=== PATIENT | male | born 1945 | race Caucasian/White ===

== ENCOUNTER 2017-04-28 06:29 | Day surgery (SDC) | payer MEDICARE, OTHER ==
[~2017-04-28] VITALS: Ht 185.4 cm; Wt 95.7 kg
[~2017-04-28 06:29] MED LIST: CRESTOR40 MG PO; HUMALOG100 UNIT/2 SUB-Q; HYDROCHLOROTHIA25 MG PO; LANTUS SOL100 UNIT/1 SUB-Q; LISINOPRIL30 MG PO; METHOTREXATE2.5 MG PO; NORVASC5 MG PO; TRAZODONE HCL50 MG PO; VICTOZA 3-0.6 MG/0.1 SUB-Q
[2017-04-28] MEDS ORDERED: ASPIR-LOW81 MG PO (07:16)
--- NOTE | 2017-04-28 07:56 | NUR ---
PT RESTING, ALERT AND ORIENTED. HAS HAD COLON CANCER, AND IS USED TO SCOPES. HIS DR A RESULT OF RECENT BLOOD WORK, FELT IT PRUDENT TO HAVE A SCOPE NOW-JUST TO KEEP AN EYE ON THINGS. HE SEEMED TO BE DEALING APPROPRIATELY, NO QUESTIONS, PT REQUESTED PRAYER. WILL FOLLOW NEEDED
--- NOTE | 2017-04-28 08:24 | NUR ---
04/28/17 0824 Tila Grider 0819 - PT ARRIVED TO PACU. AWAKE AND ORIENTED TO PERSON, TIME, PLACE, AND SITUATION. CBG = 126. PT DENIES PAIN AND NAUSEA.
--- NOTE | 2017-04-30 01:42 | OR ---
[facility] [address], [place] [address] Signed PREOPERATIVE DIAGNOSES: History of sigmoid resection for carcinoma in 2002. History of recurring polyps, last colonoscopy in December 2014.+ POSTOPERATIVE DIAGNOSIS: Three small polyps. Left shai colon and sigmoid shai colon. PROCEDURE: Total colonoscopy to the cecum with cold morcellation polypectomy x3. ANESTHESIA: Intravenous sedation, fentanyl 100 mcg, Versed 4 mg. INDICATION: This 71-year-old white man is a patient of Dr. Brandon Liu in [place], [place]. He underwent sigmoid resect ion elsewhere for carcinoma in 2002. He has had surveillance colonoscopy by me several times since then. He has had episodic findings of adenomatous polyps. He recently has had some rectal bleeding and on that basis, hematocrit was obtained which is 39 an d a CEA is found to be normal. His last colonoscopy was in 2014. He is admitted at this time to undergo surveillance colonoscopy. He understands the risks of bleeding, infection, and perforation. FINDINGS: The prep was good. Complete colonoscopy was undertak en to the cecum. There were 3 small polyps; one in the shai descending colon and 2 others in the shai sigmoid colon. Both were excised completely. There was no sign of rectal polyp. DESCRIPTION OF PROCEDURE: The patient was brought to the endoscopy suite, [facility] in lateral decubitus position, given intravenous sedation to the point of slurred speech and nystagmus. Digital rectal examination was normal. Olympus video colonoscope was passed in the rectum and manipulated throughout the colon. It was found in th e shai descending colon, a small adenomatous-appearing polyp, which was excised with cold morcellation technique. The scope was advanced slowly to the cecum. The ileocecal valve and appendiceal orifice were normal. The scope was withdrawn from that point. E xamination throughout was undertaken showing no sign of abnormality until the area of previous polypectomy identified. Further withdrawal of scope to the shai sigmoid showed 2 small polyps, both of them probably adenomatous. They were excised with cold mor c ellation technique. Further withdrawal of scope showed no other abnormalities. The anastomosis was widely patent. Retroflexed view of the rectum showed no sign of polyp. There were internal hemorrhoidal changes, however. The scope was Electronically Signed By: BETTY MOHR MD 04/30/17 0142 PATIENT NAME: KRISTA SULLIVAN OPERATIVE REPORT DATE OF : 47 PHYSICIAN: BETTY MOHR MD REPORT #: [id number] REPORT IS CONFIDENTIAL AND NOT TO BE RELEASED WITHOUT AUTHORIZATION [facility] [address], [place] [address] Signed removed. The patient was taken to recovery room in good condition. CONCLUDING DIAGNOSES: Rectal bleeding probably from hemorrhoids. Three small polyps, all excised. PLAN: Recommend repeat colonoscopy in 3 years, sooner if clinically indicated. If he should have recurrent bleeding, consideration will be made for hemorrhoidal banding. MD HERMELINDA Pena/Glory /[id number] cc: Brandon Liu MD [place], [place] Electronically Signed By: BETTY MOHR MD 04/30/17 0142 PATIENT NAME: KRISTA SULLIVAN OPERATIVE REPORT DATE OF : 47 PHYSICIAN: BETTY MOHR MD REPORT #: [id number] REPORT IS CONFIDENTIAL AND NOT TO BE RELEASED WITHOUT AUTHORIZATION
== END 2017-04-28 08:50 | disposition home or self-care (01) ==
LOC: OPS 06:29 → DS 06:29 → OPS 06:45
PROVIDERS: Surgery
PROC: 0DBG8ZX Excision of Left Large Intestine, Via Natural or Artificial Opening Endoscopic, Diagnostic (ICD-10-PCS; 2017-04-28)
PROC: 0DBN8ZX Excision of Sigmoid Colon, Via Natural or Artificial Opening Endoscopic, Diagnostic (ICD-10-PCS; principal; 2017-04-28 06:45)
DX: D12.5 Benign neoplasm of sigmoid colon (principal); D12.6 Benign neoplasm of colon, unspecified; D64.9 Anemia, unspecified; F41.9 Anxiety disorder, unspecified; E11.9 Type 2 diabetes mellitus without complications; I10 Essential (primary) hypertension; Z86.010 Personal history of colon polyps; Z90.49 Acquired absence of other specified parts of digestive tract; Z98.890 Other specified postprocedural states
CPT/HCPCS: 88305; 99152; 99153; J2250; J3010; J7120

== ENCOUNTER 2017-09-10 10:31 | Emergency (ER) | payer MEDICARE, OTHER ==
[~2017-09-10] VITALS: Ht 185.4 cm; Wt 95.7 kg
[~2017-09-10 10:31] MED LIST changes: +ASPIR-LOW81 MG PO
[2017-09-10] MEDS ORDERED: NORCO 5-325 TA1 EACH PO (10:59)
[2017-09-10] MEDS ORDERED: TAMSULOSIN HCL0.4 MG PO (10:59)
[2017-09-10] MEDS ORDERED: PROTONIX40 MG PO (14:44)
== END 2017-09-10 15:03 | disposition home or self-care (01) ==
LOC: ED 10:31
DX: R10.13 Epigastric pain (principal); E11.9 Type 2 diabetes mellitus without complications; Z87.891 Personal history of nicotine dependence; Z90.49 Acquired absence of other specified parts of digestive tract; Z79.899 Other long term (current) drug therapy; Z79.4 Long term (current) use of insulin; Z79.82 Long term (current) use of aspirin
CPT/HCPCS: 74177; 76705; 80053; 81001; 82150; 83690; 85025; 99284; J7030; Q9967

== ENCOUNTER 2018-02-03 18:56 | Inpatient (IN) | payer MEDICARE, OTHER ==
[~2018-02-03] VITALS: Ht 185.4 cm; Wt 99.9 kg
--- OUTSIDE RECORDS SUMMARY | ~2018-02-03 | XMS | Clinical Summary ---
Demographics + + + | Address | [address] | | | [place] [address] | + + + | Home Phone | | + + + | Preferred Language | Unknown | + + + | Marital Status | | + + + | Anabaptism Affiliation | 1028 | + + + | Race | Unknown | + + + | Ethnic Group | Unknown | + + + Author + + + | Author | [facility] | | | and Danielana | + + + | Organization | [facility] | | | and Danielana | [...] Team Providers + +------+ + | Care Mail Machine Operator Name | Role | Phone | [...] | | | | | | [address] [facility] | | | | | | [address] | | | | | | [address] | | | | | | | [...] + +--------+ +--------+ +---------+ | [employer] [place] | UNITED | [id number] | Indemn | [phone] | | | | OF | | ity | 1000 | | | | [place] | | | | | | | [...] | | al/Fam | | 1945 | [phone] | [place] [address] | | | [place] | | | [phone] | | + +--------+ +--------+ + +
--- OUTSIDE RECORDS SUMMARY | ~2018-02-03 | XMS | Clinical Summary ---
Demographics + + + | Address | [address] | | | [place] [address] | + + + | Home Phone | | + + + | Preferred Language | Unknown | + + + | Marital Status | | + + + | Advent Affiliation | Unknown | + + + | Race | Unknown | + + + | Ethnic Group | Unknown | + + + Author + + + | Author | [facility] | + + + | Organization | [facility] | + + + | Address | Unknown | + + + | Phone | Unavailable | + + + Support + + + + + | Name | Relationship | Address | Phone | + + + + + | Krista Sullivan | [address] | [place], | | | | | [place] [address] | | + + + + + Care Team Providers + +------+ + | Care Machinist Set Up Name | Role | Phone | + [...] RE | | | | [place] [address] | | | IP-OP | | | | | + +--------+ +------+-------+ + | [employer] [place] | MUTUAL | [id number] | | | | | | OF | | | | | | | [place] | | | | | + +--------+ [...] | Self | [birth year] | Home: | [facility] [address] | | | [address] | | 1945 | [phone] | [place] | | | [place] | | | [phone] | [address] | + +--------+ +--------+ + +
[~2018-02-03 18:56] MED LIST changes: +NORCO 5-325 TA1 EACH PO; +PROTONIX40 MG PO; +TAMSULOSIN HCL0.4 MG PO
--- OUTSIDE RECORDS SUMMARY | 2018-02-03 20:45 | XMS | Clinical Summary ---
Demographics + + + | Address | [address] | | | [place] [address] | + + + | Home Phone | | + + + | Preferred Language | Unknown | + + + | Marital Status | | + + + | Baptism Affiliation | Unknown | + + + | Race | Unknown | + + + | Ethnic Group | Unknown | + + + Author + + + | Author | [facility] | + + + | Organization | [facility] | + + + | Address | Unknown | + + + | Phone | Unavailable | + + + Support + + + + + | Name | Relationship | Address | Phone | + + + + + | Krista Sullivan | [address] | [place], | | | | | [place] [address] | | + + + + + Care Team Providers + +------+ + | Care Timber Killer Name | Role | Phone | + +------+ + | Brandon Liu MD | PP | | + +------+ + Allergies Not on File Current Medications Not on file Active Problems Not on file Social History + +-------+ +--------+------+ | Tobacco Use | Types | Packs/Day | Years | Date | | | | | Used | | + +-------+ +--------+------+ | Never Assessed | | | | | + +-------+ +--------+------+ + + + | Sex Assigned at | Date Recorded | | | | + + + | Not on file | | + + + Last Filed Vital Signs + + + + | Vital Sign | Reading | Time Taken | + + + + | Blood Pressure | - | - | + + + + | Pulse | - | - | + + + + | Temperature | - | - | + + + + | Respiratory Rate | - | - | + + + + | Oxygen Saturation | - | - | + + + + | Inhaled Oxygen | - | - | | Concentration | | | + + + + | Weight | 96.2 kg (212 lb) | 11/25/2011 6:11 AM PST | + + + + | Height | 188 cm (6' 2") | 11/25/2011 6:11 AM PST | + + + + | Body Mass Index | 27.22 | 11/25/2011 6:11 AM PST | + + + + Plan of Treatment Not on file Results Not on filefrom Last 3 Months Insurance + +--------+ +------+-------+ + | Payer | Benefi | Subscriber | Type | Phone | Address | | | t Plan | ID | | | | | | / | | | | | | | Group | | | | | + +--------+ +------+-------+ + | MEDICARE | MEDICA | xxxxxxxxxx | | | [address] | | | RE | | | | [place] [address] | | | IP-OP | | | | | + +--------+ +------+-------+ + | [employer] [place] | MUTUAL | [id number] | | | | | | OF | | | | | | | [place] | | | | | + +--------+ +------+-------+ + + +--------+ +--------+ + + | Guarantor Name | Accoun | Relation to | Date | Phone | Billing Address | | | t Type | Patient | of | | | | | | | | | | + +--------+ +--------+ + + | KRISTA SULLIVAN | Person | Self | [birth year] | Home: | [facility] [address] | | | [address] | | 1945 | [phone] | [place] | | | [place] | | | [phone] | [phone] | + +--------+ +--------+ + +
--- OUTSIDE RECORDS SUMMARY | 2018-02-03 20:46 | XMS | Clinical Summary ---
Demographics + + + | Address | [address] | | | [place] [address] | + + + | Home Phone | | + + + | Preferred Language | Unknown | + + + | Marital Status | | + + + | Jainism Affiliation | 1028 | + + + | Race | Unknown | + + + | Ethnic Group | Unknown | + + + Author + + + | Author | [facility] | | | and Danielana | + + + | Organization | [facility] | | | and Danielana | + + + | Address | Unknown | + + + | Phone | Unavailable | + + + Support + + +---------+ + | Name | Relationship | Address | Phone | + + +---------+ + | Ladonna [place] ECON | Unknown | | + + +---------+ + | Eloisa Mccormack | ECON | Unknown | | + + +---------+ + Care Team Providers + +------+ + | Care Patient Advocate Name | Role | Phone | + +------+ + | Brandon Liu MD | PP | | + +------+ + Allergies No Known Allergies Current Medications + + +---------+---------+------+------+-------+ | Prescription | Sig. | Disp. | Refills | Star | End | Statu | | | | | | t | Date | s | | | | | | Date | | | + + +---------+---------+------+------+-------+ | | Take 1 tablet by | | | 05/0 | | Activ | | HYDROcodone-acetamin | mouth every 4 hours | | | 9/20 | | e | | ophen (NORCO) 5-325 | as needed. | | | 15 | | | | mg per tablet | | | | | | | + + +---------+---------+------+------+-------+ | VICTOZA 18 MG/3ML | Inject 1.8 mg under | | | 06/0 | | Activ | | injection | the skin Daily. | | | 3/20 | | e | | | | | | 15 | | | + + +---------+---------+------+------+-------+ | traZODone | Take 25-75 mg by | | | 04/2 | | Activ | | (DESYREL) 50 mg | mouth nightly as | | | 5/20 | | e | | tablet | needed. | | | 15 | | | + + +---------+---------+------+------+-------+ | aspirin 81 mg EC | Take 81 mg by mouth | | | | | Activ | | tablet | Daily. | | | | | e | + + +---------+---------+------+------+-------+ | insulin lispro | Inject 6 Units under | | | | | Activ | | protamine-insulin | the skin 3 times | | | | | e | | lispro 75/25 | daily. | | | | | | | (HUMALOG MIX 75/25 | | | | | | | | KWIKPEN) 100 | | | | | | | | units/mL injection | | | | | | | | pen | | | | | | | + + +---------+---------+------+------+-------+ | insulin glargine | Inject 22 Units | | | | | Activ | | (LANTUS) 100 | under the skin | | | | | e | | units/mL injection | nightly. | | | | | | | (vial) | | | | | | | + + +---------+---------+------+------+-------+ | Multiple | Take 1 tablet by | | | | | Activ | | Vitamins-Minerals | mouth Daily. | | | | | e | | (ICAPS PO) | | | | | | | + + +---------+---------+------+------+-------+ | LORazepam (ATIVAN) | Take 0.5 mg by mouth | | | | | Activ | | 0.5 mg tablet | every 6 hours as | | | | | e | | | needed for Anxiety | | | | | | | | or Insomnia. | | | | | | + + +---------+---------+------+------+-------+ | lisinopril | Take 10 mg by mouth | | | | | Activ | | (PRINIVIL, ZESTRIL) | 2 times daily. | | | | | e | | 20 mg tablet | | | | | | | + + +---------+---------+------+------+-------+ | amLODIPine | Take 0.5 tablets by | | | 04/0 | | Activ | | (NORVASC) 5 mg | mouth 2 times daily. | | | 5/20 | | e | | tablet | | | | 16 | | | + + +---------+---------+------+------+-------+ | rosuvastatin | Take 0.5 tablets by | | | 04/0 | | Activ | | (CRESTOR) 40 MG | mouth nightly. | | | 5/20 | | e | | tablet | | | | 16 | | | + + +---------+---------+------+------+-------+ | sodium bicarbonate | Take 1 tablet by | 180 | 3 | 11/0 | | Activ | | 325 MG tablet | mouth 2 times daily. | tablet | | 7/20 | | e | | | | | | 16 | | | + + +---------+---------+------+------+-------+ | tamsulosin | Take 1 capsule by | 30 | 3 | 06/1 | | Activ | | (FLOMAX) 0.4 mg CAPS | mouth nightly. | capsule | | 9/20 | | e | | | | | | 17 | | | + + +---------+---------+------+------+-------+ Active Problems + + + | Problem | Noted Date | + + + | Urinary hesitancy due to benign prostatic hyperplasia | 03/31/2017 | + + + | Metabolic acidosis | 03/26/2016 | + + + | Caregiver stress | 12/28/2015 | + + + | Chronic kidney disease, stage III (moderate) | 12/28/2015 | + + + | Enchondroma of femur | 03/22/2015 | + + + + + | Last Assessment & Plan: This lesion is a benign | | enchondromaRadiographically it has the classic calcification on | | plain films and MRI does show it is cartilage basedOn MRI there | | are no signs of erosion or excess fluidI was able to discuss the | | natural history and treatment optionsI do not recommend | | biospyObservation is all that is requiredHe has horrible knee | | arthritis and this is likely his generator of painAll questions | | are answered | + + + + + | Chronic lumbar radiculopathy - left | 08/10/2014 | + + + | DDD (degenerative disc disease), lumbar | 08/10/2014 | + + + | Type 2 diabetes mellitus (HCC) | | + + + | Hypertension, renal disease, stage 1-4 or unspecified chronic | | | kidney disease | | + + + Family History + + +------+ + | Medical History | Relation | Name | Comments | + + +------+ + | Hypertension | Brother | | | + + +------+ + | Stroke | Father | | | + + +------+ + | Heart attack | Mother | | | + + +------+ + + +------+ + + | Relation | Name | Status | Comments | + +------+ + + | Brother | | Alive | | + +------+ + + | Father | | | | + +------+ + + | Mother | | | | + +------+ + + Social History + +-------+ +--------+ + | Tobacco Use | Types | Packs/Day | Years | Date | | | | | Used | | + +-------+ +--------+ + | Former Smoker | Pipe | | | Quit: 12/27/2014 | + +-------+ +--------+ + + +---+---+---+ | Smokeless Tobacco: | | | | | Never Used | | | | + +---+---+---+ + + +---------+ + | Alcohol Use | Drinks/We | oz/Week | Comments | | | ek | | | + + +---------+ + | Yes | 0 | 0.0 | occasionally; was drinking more 2-3 months | | | Standard | | ago | | | drinks or | | | | | | | | | | equivalen | | | | | t | | | + + +---------+ + + + + | Sex Assigned at | Date Recorded | | | | + + + | Not on file | | + + + Last Filed Vital Signs + + + + | Vital Sign | Reading | Time Taken | + + + + | Blood Pressure | 122/62 | 03/31/20171112 PDT | + + + + | Pulse | 73 | 03/31/20171112 PDT | + + + + | Temperature | 36.7 C (98.1 F) | 12/28/20151309 PDT | + + + + | Respiratory Rate | 16 | 12/28/20151309 PDT | + + + + | Oxygen Saturation | 98% | 03/31/20171112 PDT | + + + + | Inhaled Oxygen | - | - | | Concentration | | | + + + + | Weight | 96.7 kg (213 lb 1.6 | 03/31/20171112 PDT | | | oz) | | + + + + | Height | 188 cm (6' 2") | 12/28/2015 1310 PDT | + + + + | Body Mass Index | 27.36 | 03/31/20171112 PDT | + + + + Plan of Treatment +--------+---------+ + + + | Date | Type | Specialty | Care Team | Description | +--------+---------+ + + + | 04/09/ | Office | | Emily, | | | 2017 | Visit | | [address] | | | | | | [facility] | | | | | | [address] [place] [place] | | | | | | [address] | | | | | | | | +--------+---------+ + + + + + + + + | Health Maintenance | Due Date | Last Done | Comments | + + + + + | Hepatitis C | | | | | Screening | 6 | | | + + + + + | Diabetic Eye Exam | | | | | (Bi-Annually) | 4 | | | + + + + + | Diabetic Foot Exam | | | | | | 4 | | | + + + + + | Vaccine: | | | | | Dtap/Tdap/Td (1 - | 5 | | | | Tdap) | | | | + + + + + | Vaccine: | | | | | Pneumococcal 65+ | 1 | | | | Low/Medium Risk (1 | | | | | of 2 - PCV13) | | | | + + + + + | Hemoglobin A1c Q6 | | 03/24/2017, 09/24/2016, | | | Months | 7 | 02/12/2016, Additional history | | | | | exists | | + + + + + | Vaccine: Influenza | | | | | (Season Ended) | 8 | | | + + + + + Results Not on filefrom Last 3 Months Insurance + +--------+ +--------+ +---------+ | Payer | Benefi | Subscriber | Type | Phone | Address | | | t Plan | ID | | | | | | / | | | | | | | Group | | | | | + +--------+ +--------+ +---------+ | MEDICARE | MEDICA | xxxxxxxxxx | Medica | [phone]-- | | | | RE | | re | [phone] | | | | PART A | | | | | | | AND B | | | | | + +--------+ +--------+ +---------+ | [employer] [place] | UNITED | [id number] | Indemn | [phone] | | | | OF | | ity | 1000 | | | | [place] | | | | | | | MDCR | | | | | | | SUPPL | | | | | + +--------+ +--------+ +---------+ + +--------+ +--------+ + + | Guarantor Name | Accoun | Relation to | Date | Phone | Billing Address | | | t Type | Patient | of | | | | | | | | | | + +--------+ +--------+ + + | KRISTA SULLIVAN | Person | Self | [birth year] | Home: | [address] | | | al/Fam | | 1945 | [phone] | [place] [address] | | | [place] | | | [phone] | | + +--------+ +--------+ + +
--- OUTSIDE RECORDS SUMMARY | 2018-02-03 20:46 | XMS | Clinical Summary ---
Demographics + + + | Address | [address] | | | [place] [address] | + + + | Home Phone | | + + + | Preferred Language | Unknown | + + + | Marital Status | | + + + | Shinto Affiliation | Unknown | + + + | Race | Unknown | + + + | Ethnic Group | Unknown | + + + Author + + + | Author | [facility] | + + + | Organization | [facility] | + + + | Address | Unknown | + + + | Phone | Unavailable | + + + Support + + + + + | Name | Relationship | Address | Phone | + + + + + | Krista Sullivan | [address] | [place], | | | | | [place] [address] | | + + + + + Care Team Providers + +------+ + | Care Exhibit Electrician Name | Role | Phone | + [...] RE | | | | [place] [address] | | | IP-OP | | | | | + +--------+ +------+-------+ + | [employer] [place] | MUTUAL | [id number] | | | | | | OF | | | | | | | [place] | | | | | + +--------+ [...] | Self | [birth year] | Home: | [facility] [address] | | | [address] | | 1945 | [phone] | [place] | | | [place] | | | [phone] | [phone] | + +--------+ +--------+ + +
--- OUTSIDE RECORDS SUMMARY | 2018-02-03 20:46 | XMS | Clinical Summary ---
Demographics + + + | Address | [address] | | | [place] [address] | + + + | Home Phone | | + + + | Preferred Language | Unknown | + + + | Marital Status | | + + + | Restorationist Affiliation | 1028 | + + + | Race | Unknown | + + + | Ethnic Group | Unknown | + + + Author + + + | Author | [facility] | | | and Danielana | + + + | Organization | [facility] | | | and Danielana | [...] Team Providers + +------+ + | Care Pulp Cooker Name | Role | Phone | + [...] | | | | | | [address] [facility] | | | | | | [address] | | | | | | [address] | | | | | | | [...] + +--------+ +--------+ +---------+ | [employer] [place] | UNITED | [id number] | Indemn | [phone] | | | | OF | | ity | [address] | | | | [place] | | | | | | | [...] | | al/Fam | | 1945 | [phone] | [place] [address] | | | [place] | | | [phone] | | + +--------+ +--------+ + +
--- OUTSIDE RECORDS SUMMARY | 2018-02-04 12:04 | XMS | Clinical Summary ---
Demographics + + + | Address | [address] | | | [place] [address] | + + + | Home Phone | | + + + | Preferred Language | Unknown | + + + | Marital Status | | + + + | Restoration Affiliation | 1028 | + + + | Race | Unknown | + + + | Ethnic Group | Unknown | + + + Author + + + | Author | [facility] | | | and Danielana | + + + | Organization | [facility] | | | and [...] Team Providers + +------+ + | Care Desizing Machine Operator Head End Name | Role | Phone | + [...] | | | | | | [facility] | | | | | | [address] | | | | | | [address] | | | | | | | [...] + +--------+ +--------+ +---------+ | [employer] [place] | UNITED | [id number] | Indemn | [phone] | | | | OF | | ity | 1000 | | | | [place] | | | | | | | [...] | | al/Fam | | 1945 | [phone] | [place] [address] | | | [place] | | | [phone] | | + +--------+ +--------+ + +
--- OUTSIDE RECORDS SUMMARY | 2018-02-04 12:04 | XMS | Clinical Summary ---
Demographics + + + | Address | [address] | | | [place] [address] | + + + | Home Phone | | + + + | Preferred Language | Unknown | + + + | Marital Status | | + + + | Muslim Affiliation | Unknown | + + + | Race | Unknown | + + + | Ethnic Group | Unknown | + + + Author + + + | Author | [facility] | + + + | Organization | [facility] | + + + | Address | Unknown | + + + | Phone | Unavailable | + + + Support + + + + + | Name | Relationship | Address | Phone | + + + + + | Krista Sullivan | [address] | [place], | | | | | [place] [address] | | + + + + + Care Team Providers + +------+ + | Care Cd Reactor Operator Name | Role | Phone | + [...] RE | | | | [place] [address] | | | IP-OP | | | | | + +--------+ +------+-------+ + | [employer] [place] | MUTUAL | [id number] | | | | | | OF | | | | | | | [place] | | | | | + +--------+ [...] | Self | [birth year] | Home: | [facility] [address] | | | [address] | | 1945 | [phone] | [place] | | | [place] | | | [phone] | [phone] | + +--------+ +--------+ + +
[2018-02-04] MEDS ORDERED: TOPROL XL25 MG PO (13:45)
[2018-02-04] MEDS ORDERED: ZESTRIL40 MG PO (13:46)
[2018-02-04] MEDS ORDERED: VENTOLIN HFA18 GM INH (13:48)
[2018-02-04] MEDS ORDERED: PROTONIX40 MG PO (17:43)
[2018-02-04] MEDS ORDERED: TOUJEO SOL300 UNIT/1 SUB-Q (17:46)
--- NOTE | 2018-02-05 05:48 | CONS ---
[facility] [address] [place] [address], [place] [address] Signed DATE OF CONSULTATION: 02/04/2018 CHIEF COMPLAINT: Right-sided abdominal pain. HISTORY OF PRESENT ILLNESS: Krista is a 72-year-old gentleman who in 2002 underwent a sigmoid resection for a colon cancer. He had chemotherapy that went fine. He has had several colonoscopies since then including 2014, which showed three small polyps in his left colon. For two days now, he has had right mid quadrant abdominal pain that has been pretty intense. He finally came to the ER for evaluation. White count had initially been up at 14.5, it is now down to 9.2. He had a CT scan of the abdomen and pelvis, and it showed the mid right colon to be thickened and inflamed with fat stranding around it, but the cecum seems to be actually pretty good. He had some stool in the left colon and did get a Dulcolax suppository last night with a bowel movement, but no major change in that pain. He has been on cefepime and Flagyl as well. Repeat white count this morning is down to 9.2. No lactic acid has been sent, so we will do that. I was asked to admit him as a general surgeon on-call last night. PAST MEDICAL HISTORY: Colon cancer in 2002, requiring chemotherapy in the [facility]; type 2 diabetes, hypertension, hyperlipidemia, and polyps as late as 2014. PAST SURGICAL HISTORY: Sigmoid resection at [facility] in [place], several colonoscopies with Dr. Fish, laparoscopic cholecystectomy, lumbar surgery with metal remaining, appendectomy, cataract surgery, and left knee surgery x3. SOCIAL HISTORY: He does not smoke or drink. He is just the last 6 months. He has no children, but he has two stepdaughters. Yulia Daugherty is his primary care provider. He prefers the [facility]. They moved up from [place] to [place]. 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 FAMILY HISTORY: Father , father had a stroke. Mother had coronary artery disease. Brother is healthy. There is no family history of colon cancer or polyps. REVIEW OF SYSTEMS: He had 10 systems reviewed. Krista said he has been doing fine until this pain in the right mid quadrant for the last 2 days. ALLERGIES: Electronically Signed By: AUREA ELLIS MD 02/05/18 0548 PATIENT NAME: KRISTA SULLIVAN CONSULTATION DATE OF : 47 REPORT #: [id number] PHYSICIAN: AUREA ELLIS MD PCP: YULIA DAUGHERTY REPORT IS CONFIDENTIAL AND NOT TO BE RELEASED WITHOUT AUTHORIZATION [facility] [address], [place] [address] Signed None. MEDICATIONS: 1. Protonix. 2. Trazodone. 3. Insulin. 4. Victoza. 5. Methotrexate. 6. Humalog. 7. Crestor. 8. Hydrochlorothiazide. 9. Aspirin. 10. Bejou. Flomax. PHYSICAL EXAMINATION: VITAL SIGNS: His blood pressure is 131/58, heart rate 66, respiratory rate 16, temperature is 98.3, and he is 97% on room air. He is 6 feet and 1 inch at 99 kg. GENERAL: Krista is a 72-year-old gentleman who is lying supine in his hospital bed. His is at the bedside. He is alert, awake, and interactive. He does not appear systemically ill or toxic. LUNGS: Generally clear to auscultation bilaterally. HEART: Regular rate and rhythm. ABDOMEN: Soft and flat, but he does have localized peritoneal signs and symptoms in the right mid quadrant of his abdomen. LABORATORY DATA: His white blood cell count was 14.5, it is down to 9.2; his neutrophils are 81, hemoglobin is 12. His BUN is 30, creatinine 1.5, glucose 164. His urinalysis was negative. Liver function tests are negative. His albumin is 4 and lipase negative. RADIOGRAPHIC STUDIES: CT scan of the abdomen and pelvis is reviewed, and I can see this thickened inflamed area in the mid right colon. The cecum seems to be fine. He did have some stool in the left colon. I can see the evelyne near the top of the rectum. 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 ASSESSMENT AND PLAN: Krista is a 72-year-old gentleman who presents with focal right-sided colitis, why we do not know. We will continue his IV fluids and his antibiotics. We will have him some sips. We will check some stool studies along with a lactic acid and go from there. We will have our hospitalist see him for his medical evaluation and treatment. I reviewed all this with Krista, he has expressed understanding and agrees with the above plan. Electronically Signed By: AUREA ELLIS MD 02/05/18 0548 PATIENT NAME: KRISTA SULLIVAN CONSULTATION DATE OF : 47 REPORT #: [id number] PHYSICIAN: AUREA ELLIS MD PCP: YULIA DAUGHERTY REPORT IS CONFIDENTIAL AND NOT TO BE RELEASED WITHOUT AUTHORIZATION [address] [address] Signed Aurea Ellis MD ALB/MODL /[id number] cc: TROY Wang Patient's Chart Aurea Ellis MD Copies: YULIA DAUGHERTY ANDREW L MD ~ Electronically Signed By: AUREA ELLIS MD 02/05/18 0548 PATIENT NAME: KRISTA SULLIVAN CONSULTATION DATE OF : 47 REPORT #: [id number] PHYSICIAN: AUREA ELLIS MD PCP: YULIA DAUGHERTY REPORT IS CONFIDENTIAL AND NOT TO BE RELEASED WITHOUT AUTHORIZATION
--- NOTE | 2018-02-07 12:00 | DS ---
[facility] [address] [place], [place] [address] Signed ADMISSION DATE: 02/05/2018 DISCHARGE DATE: 02/07/2018 FINAL DIAGNOSES: 1. Right mid colon unspecified mass versus colitis. 2. Right mid colon polyp. 3. Hepatic flexure polyp. PROCEDURES: 1. Colonoscopy with cold biopsy and hot biopsies. 2. CT scan of abdomen and pelvis. HISTORY OF PRESENT ILLNESS: Krista is a 72-year-old gentleman, who 2 days prior to admission had significant right mid quadrant abdominal pain. In the emergency room, he had localized peritonitis on exam. White count was initially elevated at 14.5. CT scan showed an area in the mid right colon that was thickened and inflamed with pericolonic fat stranding. I had been asked to admit him as a general surgeon on-call. HOSPITAL COURSE: Yeison was admitted as above and started on cefepime and Flagyl and rapidly resolved his pain. His white count went to normal. Lactic acid was normal and stool cultures had all been no growth to date. After a long discussion with Yeison, we took him for a colonoscopy on 02/07/2018. We could see the circumferential lesion in the mid right colon. We took multiple circumferential biopsies with our cold biopsy forceps. Then, right next to it was a polyp, which we removed with a hot biopsy forceps and then back in hepatic flexure was a smaller 4 mm polyp. We removed with hot biopsy forceps. The rest of the colon including anastomosis and rectum were fine. After this, Krista returned to his room. DISCHARGE PLANS AND MEDICATIONS: Yeison will be discharged to home with no new prescriptions. He will hold his aspirin for one week. He can resume all his other medications at the time of discharge. He can follow a regular diet and activity as tolerated. He will be following up with Dr. Mohr here in 7 to 14 days to review his pathology results. Aurea Ellis MD Electronically Signed By: AUREA ELLIS MD 02/07/18 1200 PATIENT NAME: KRISTA SULLIVAN DISCHARGE SUMMARY DATE OF : 47 REPORT #: [id number] PHYSICIAN: AUREA ELLIS MD PCP: YULIA HAIRSTON REPORT IS CONFIDENTIAL AND NOT TO BE RELEASED WITHOUT AUTHORIZATION [facility] [address] [place], [place] [address] Signed ALB/MODL /[id number] cc: MD Aurea Pena MD Linda Harries, PA Copies: BETTY MOHR MD, ANDREW L MD HARRIES, LINDA PA ~ Electronically Signed By: AUREA ELLIS MD 02/07/18 1200 PATIENT NAME: KRISTA SULLIVAN DISCHARGE SUMMARY DATE OF : 47 REPORT #: [id number] PHYSICIAN: AUREA ELLIS MD PCP: YULIA HAIRSTON REPORT IS CONFIDENTIAL AND NOT TO BE RELEASED WITHOUT AUTHORIZATION
--- NOTE | 2018-02-07 12:00 | OR ---
[facility] [address] [place], [place] [address] Signed DATE OF OPERATION: 02/07/2018 SURGEON: Aurea Ellis MD PREOPERATIVE DIAGNOSIS: Right mid ascending colitis versus unspecified colonic mass. POSTOPERATIVE DIAGNOSES: 1. Right mid ascending colon circumferential lesion/unspecified mass. 2. An 8 mm polyp right mid ascending colon. 3. A 4 mm polyp in hepatic flexure. PROCEDURES: Colonoscopy with cold biopsies of unspecified mass and hot biopsies of polyps. ESTIMATED BLOOD LOSS: None. INDICATIONS: Krista is a 72-year-old gentleman, who had 2-day history of right mid quadrant abdominal pain. He came to emergency room for evaluation. He had localized peritonitis in the right mid quadrant with a white count of 14.5. A CT scan showed right mid colon thickened edematous wall with some pericolonic inflammation. It showed evelyne at the top of the rectum from his previous sigmoid resection. I have been asked to admit him as a general surgeon on-call. He told me that he just had a colonoscopy with Dr. Fish 4 or 5 months ago and thought everything was fine. We placed him on cefepime and Flagyl and IV fluids and he improved rapidly. White count went to normal by the next day and by the 3rd day, his pain was very minimal. We send some stool studies and today there is no growth. We had a long discussion about discharge versus a followup colonoscopy. He wanted to stay an extra day and go through his bowel prep and have a colonoscopy done before discharge. We therefore put him through our standard MiraLAX and Gatorade bowel prep. He understands colonoscopy quite well. He understands there is risk including, but not limited to, gas bloating, crampy abdominal pain, bleeding, perforation, requiring surgery, and missed diagnosis. In addition, he will be following up with Dr. Fish as his usual surgeon after discharge. He had expressed understanding and wished to proceed. PROCEDURE NOTE: Krista was taken into our endoscopy suite and placed in the left lateral decubitus position. He was given 6 mg of Versed and 125 mcg of fentanyl to cover the case. A Electronically Signed By: AUREA ELLIS MD 02/07/18 1200 PATIENT NAME: KRISTA SULLIVAN OPERATIVE REPORT DATE OF : 47 REPORT #: [id number] PHYSICIAN: AUREA ELLIS MD PCP: LISETH HAIRSTON REPORT IS CONFIDENTIAL AND NOT TO BE RELEASED WITHOUT AUTHORIZATION [facility] [address], [place] [address] Signed digital rectal exam was performed and this was unremarkable. The adult colonoscope was introduced and I could see his anastomosis right around 20 cm. It was circumferential, well healed without any ulceration or granulation tissue. The scope was passed further all the way up through the circumferential lesion in the mid ascending colon and into the cecum itself. The cecum and proximal right colon were quite healthy. He had nice green bile in his colon. Once we got back to the mid right colon, he has a circumferential ulcerated lesion. There were some dark areas and one has to wonder if that could be ischemic versus something more serious. We went ahead and took circumferential biopsies of that lesion with a cold biopsy forceps. And then right next to it was 8 mm polyp, which we biopsied and destroyed completely with the hot biopsy forceps. The scope was withdrawn further and as we came around hepatic flexure, there was a small 4 mm polyp, which we removed with a hot biopsy forceps. The rest of his colon and rectum were unremarkable. Upon retroflexion of scope, he has very little in the way of internal hemorrhoid tissue. After this, the gas was suctioned out and the colonoscope removed. Krista tolerated the procedure quite well. RECOMMENDATIONS: Yeison will be discharged to home later today. He will be following up with Dr. Fish here in about a week or so to review his biopsy results. Aurea Ellis MD [facility]/MODL /[id number] cc: MD Liseth Khan PA Copies: AUREA ELLIS MD, LINDA PA ~ Electronically Signed By: AUREA ELLIS MD 02/07/18 1200 PATIENT NAME: KRISTA SULLIVAN OPERATIVE REPORT DATE OF : 47 REPORT #: [id number] PHYSICIAN: AUREA ELLIS MD PCP: LISETH HAIRSTON REPORT IS CONFIDENTIAL AND NOT TO BE RELEASED WITHOUT AUTHORIZATION
== END 2018-02-07 11:15 | disposition home or self-care (01) | DRG 394 ==
LOC: ED 18:56 → CCU 18:58 → ED 02-04 00:13 → CCU 02-04 00:13 → MS 02-04 17:20 → CCU 02-05 18:58 → MS 02-05 18:59
PROVIDERS: ADMIT Colon & Rectal Surgery
PROC: 0DBL8ZX Excision of Transverse Colon, Via Natural or Artificial Opening Endoscopic, Diagnostic (ICD-10-PCS; 2018-02-07)
PROC: 0DBF8ZX Excision of Right Large Intestine, Via Natural or Artificial Opening Endoscopic, Diagnostic (ICD-10-PCS; principal; 2018-02-07 09:15)
DX: K63.89 Other specified diseases of intestine (principal); N17.9 Acute kidney failure, unspecified; K63.5 Polyp of colon; Z85.038 Personal history of other malignant neoplasm of large intestine; I10 Essential (primary) hypertension; E78.5 Hyperlipidemia, unspecified; Z79.4 Long term (current) use of insulin; K52.9 Noninfective gastroenteritis and colitis, unspecified
CPT/HCPCS: 36415; 74177; 80048; 80053; 81001; 83605; 83690; 83735; 84100; 84134; 85025; 87045; 87046; 87177; 87205; 87209; 87493; 87502; 88305; 94760; 96361; 96374; 96375; 96376; 99153; 99285; G0500; J0692; J1170; J1644; J2250; J2270; J2405; J3010; J7030; J7120; Q9967

== ENCOUNTER 2018-11-03 10:29 | Day surgery (SDC) | payer MEDICARE, OTHER ==
[~2018-11-03] VITALS: Ht 185.4 cm; Wt 100.7 kg
[~2018-11-03 10:29] MED LIST changes: +FLAGYL250 MG PO; +TOPROL XL25 MG PO; +TOUJEO SOL300 UNIT/1 SUB-Q; +ULTRAM50 MG PO; +VENTOLIN HFA18 GM INH; +ZESTRIL40 MG PO
[2018-11-03] MEDS ORDERED: CRESTOR40 MG NG (10:46)
[2018-11-03] MEDS ORDERED: VITAMIN D5000 UNIT PO (10:46)
[2018-11-03] MEDS ORDERED: CYCLOBENZAPRINE10 MG PO (10:46)
[2018-11-03] MEDS ORDERED: ICAPS TABLET1 EACH PO (10:47)
[2018-11-03] MEDS ORDERED: FOLIC ACID1 MG PO (10:47)
[2018-11-03] MEDS ORDERED: FIBER500 MG PO (10:47)
[2018-11-03] MEDS ORDERED: ZESTRIL40 MG PO (10:48)
[2018-11-03] MEDS ORDERED: SILDENAFIL20 MG PO (10:48)
[2018-11-03] MEDS ORDERED: ADULT LOW DOSE81 MG PO (11:02)
[2018-11-03] MEDS ORDERED: PROZAC10 MG PO (11:02)
--- NOTE | 2018-11-03 11:47 | NUR ---
11/03/18 Cooper7 Stefania Dawkins 1139-PATIENT ARRIVED TO PACU AWAKE DROWSY DENIES PAIN OR NAUSEA. REPOSTIIONED SELF TO BACK. 2L NC. RR EVEN. GLUCOSE CHECKED 166 1144-WEANED TO RA O2 SAT 98%
--- NOTE | 2018-11-03 21:11 | OR ---
[facility] [address] [place], [place] [address] Signed DATE OF OPERATION: 11/03/2018 SURGEON: Betty Mohr MD PREOPERATIVE DIAGNOSES: 1. History of colitis, September 2018, left-sided. 2. History of sigmoid resection for cancer in 2002. POSTOPERATIVE DIAGNOSIS: No clear evidence of colitis or ileitis. PROCEDURE PERFORMED: Total colonoscopy to cecum with multiple biopsies. ANESTHESIA: Intravenous sedation, fentanyl 100 mcg, Versed 5 mg. INDICATION: This 73-year-old white man is a patient of Yulia Daugherty and known to me from the past. He was diagnosed with findings of colitis on colonoscopy performed in January [address] Ricky Vázquez. He recently presented to emergency room with recurrent symptoms of that on October 03, 2018, and was empirically treated with Flagyl. A plain abdominal x-ray at that time thought possible colonic obstruction was present. However, CT scan did not confirm obstruction, but did show inflammatory stranding in the left colon. He was empirically treated by me with Flagyl in conjunction with the ER physician and had improvement. He continues to have some diarrhea. He has had no blood per rectum. He is at this time to undergo colonoscopy to assess the possibility of colitis versus a neoplastic change. He understands the risks of bleeding, infection, and perforation, and wished to proceed. FINDINGS: The prep was good. Complete colonoscopy was undertaken to the cecum without question. Intubation of the ileum was done and biopsies obtained there as well as the cecum, transverse, left, and rectal areas. The anastomosis was widely patent. There is no clear evidence of colitis or ileitis. There may be occult colitis. Obviously, and biopsies were taken on that basis. There is certainly no sign of cancer or polyps. DESCRIPTION OF PROCEDURE: The patient was brought to the endoscopy suite and placed in lateral decubitus position, given intravenous sedation to the point of slurred speech and nystagmus. Digital rectal Electronically Signed By: BETTY MOHR MD 11/03/181 PATIENT NAME: KRISTA SULLIVAN OPERATIVE REPORT DATE OF : 47 REPORT #: [id number] PHYSICIAN: BETTY MOHR MD PCP: YULIA DAUGHERTY REPORT IS CONFIDENTIAL AND NOT TO BE RELEASED WITHOUT AUTHORIZATION [facility] [address] [place], [place] [address] Signed examination was normal. An Olympus video colonoscope was passed in the rectum and manipulated throughout the colon ultimately intubating the cecum itself. The ileocecal valve and appendiceal orifice were normal. With various manipulations, the ileum could be intubated but not fully. Mucosa of the ileum was visualized. It did look normal. Biopsies were obtained. The scope was withdrawn and biopsies were then taken of the cecum. Careful withdrawal of scope showed no sign of polyps or obvious active colitis. Biopsies include a transverse colon, left colon, and rectum. The anastomosis was widely patent. Retroflexed view of the rectum was reasonably normal. There were some internal hemorrhoids but no sign of polyp as it had been in the past. The scope was removed and the patient was taken to recovery room in good condition. CONCLUDING DIAGNOSIS: No evidence of active colitis currently. Biopsies have been obtained to assess for lymphocytic colitis or other occult . PLAN: We will empirically treat again with Flagyl 250 p.o. t.i.d. for 10 days pending results of pathology and results of biopsies. He will see us back in 4 to 6 weeks, sooner if symptoms should occur. MD HERMELINDA Pena/JOELLEL /[id number] cc: TROY Wang Copies: YULIA DAUGHERTY ~ Electronically Signed By: BETTY MOHR MD 11/03/18 2111 PATIENT NAME: KRISTA SULLIVAN OPERATIVE REPORT DATE OF : 47 REPORT #: [id number] PHYSICIAN: BETTY MOHR MD PCP: YULIA DAUGHERTY REPORT IS CONFIDENTIAL AND NOT TO BE RELEASED WITHOUT AUTHORIZATION
== END 2018-11-03 12:25 | disposition home or self-care (01) ==
LOC: DS 10:29
PROVIDERS: Surgery
PROC: 0DBN8ZX Excision of Sigmoid Colon, Via Natural or Artificial Opening Endoscopic, Diagnostic (ICD-10-PCS; 2018-11-03)
PROC: 0DBL8ZX Excision of Transverse Colon, Via Natural or Artificial Opening Endoscopic, Diagnostic (ICD-10-PCS; 2018-11-03)
PROC: 0DBP8ZX Excision of Rectum, Via Natural or Artificial Opening Endoscopic, Diagnostic (ICD-10-PCS; 2018-11-03)
PROC: 0DBB8ZX Excision of Ileum, Via Natural or Artificial Opening Endoscopic, Diagnostic (ICD-10-PCS; 2018-11-03)
PROC: 0DBH8ZX Excision of Cecum, Via Natural or Artificial Opening Endoscopic, Diagnostic (ICD-10-PCS; principal; 2018-11-03 12:00)
DX: R19.5 Other fecal abnormalities (principal); D64.9 Anemia, unspecified; F41.9 Anxiety disorder, unspecified; E11.9 Type 2 diabetes mellitus without complications; I10 Essential (primary) hypertension; E66.3 Overweight; F32.9 Major depressive disorder, single episode, unspecified; Z87.19 Personal history of other diseases of the digestive system; Z86.010 Personal history of colon polyps; Z85.038 Personal history of other malignant neoplasm of large intestine
CPT/HCPCS: 88305; 99153; G0500; J2250; J3010; J7120

== ENCOUNTER 2019-01-16 06:32 | Emergency (ER) | payer MEDICARE, OTHER ==
[~2019-01-16] VITALS: Ht 185.4 cm; Wt 101.2 kg
--- OUTSIDE RECORDS SUMMARY | ~2019-01-16 | XMS | Clinical Summary ---
Demographics + + + | Address | [address] | | | [place] [address] | + + + | Home Phone | | + + + | Preferred Language | Unknown | + + + | Marital Status | | + + + | Episcopalian Affiliation | Unknown | + + + | Race | Unknown | + + + | Ethnic Group | Unknown | + + + Author + + + | Author | [facility] | + + + | Organization | [facility] | + + + | Address | Unknown | + + + | Phone | Unavailable | + + + Support + + + + + | Name | Relationship | Address | Phone | + + + + + | Krista Sullivan | [address] | [place], | | | | | [place] [address] | | + + + + + Care Team Providers + +------+ + | Care 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
--- OUTSIDE RECORDS SUMMARY | ~2019-01-16 | XMS | Clinical Summary ---
Demographics + + + | Address | [address] | | | [place] [address] | + + + | Home Phone | | + + + | Preferred Language | Unknown | + + + | Marital Status | | + + + | Church Affiliation | 1028 | + + + | Race | Unknown | + + + | Ethnic Group | Unknown | + + + Author + + + | Author | [facility] | | | and Danielana | + + + | Organization | [facility] | | | and Danielana | + + + | Address | Unknown | + + + | Phone | Unavailable | + + + Support + + + + + | Name | Relationship | Address | Phone | + + + + + | Mary Sullivan | ECON | [address] | | | | | [facility] [place] | | | | | [address] | | + + + + + | Paz Kline | ECON | [place] | | | | | [address] | | + + + + + Care Team Providers + +------+ + | Care Abrasive Mixer Helper Name | Role | Phone | + +------+ + | Liseth Daugherty PA-C | PP | | + +------+ + Allergies No Known Allergies Current Medications + + +--------+---------+------+------+-------+ | Prescription | Sig. | Disp. | Refills | Star | End | Statu | | | | | | t | Date | s | | | | | | Date | | | + + +--------+---------+------+------+-------+ | | Take 1 tablet by | | | 05/0 | | Activ | | HYDROcodone-acetamin | mouth every 6 hours | | | 9/20 | | e | | ophen (NORCO) 5-325 | as needed for Pain. | | | 15 | | | | mg per tablet | | | | | | | + + +--------+---------+------+------+-------+ | VICTOZA 18 MG/3ML | Inject 1.8 mg under | | | 06/0 | | Activ | | injection | the skin Daily. | | | 3/20 | | e | | | | | | 15 | | | + + +--------+---------+------+------+-------+ | aspirin 81 mg EC | Take 81 mg by mouth | | | | | Activ | | tablet | Daily. | | | | | e | + + +--------+---------+------+------+-------+ | insulin lispro | Inject 6 Units [...] | | | | | + + +--------+---------+------+------+-------+ | Multiple | Take 1 tablet by | | | | | Activ | | Vitamins-Minerals | mouth Daily. | | | | | e | | (ICAPS PO) | | | | | | | + + +--------+---------+------+------+-------+ | rosuvastatin | Take 0.5 tablets by | | | 04/0 | | Activ | | (CRESTOR) 40 MG | mouth nightly. | | | 5/20 | | e | | tablet | | | | 16 | | | + + +--------+---------+------+------+-------+ | sodium bicarbonate | Take 1 tablet by | 180 | 3 | 11/0 | | Activ | | 325 MG tablet | mouth 2 times daily. | tablet | | 7/20 | | e | | | | | | 16 | | | + + +--------+---------+------+------+-------+ | cyclobenzaprine | Take 10 mg by mouth | | | | | Activ | | (FLEXERIL) 10 mg | 3 times daily as | | | | | e | | tablet | needed. | | | | | | + + +--------+---------+------+------+-------+ | folic acid 1 mg | | | | | | Activ | | tablet | | | | | | e | + + +--------+---------+------+------+-------+ | | Take 25 mg by mouth | | | | | Activ | | hydroCHLOROthiazide | Daily. | | | | | e | | 50 mg tablet | | | | | | | + + +--------+---------+------+------+-------+ | lisinopril | Take 40 mg by mouth | | | | | Activ | | (PRINIVIL,ZESTRIL) | Daily. | | | | | e | | 40 MG tablet | | | | | | | + + +--------+---------+------+------+-------+ | methotrexate 2.5 | As directed 8/wk | | | | | Activ | | mg tablet | | | | | | e | + + +--------+---------+------+------+-------+ | metoprolol | Take 25 mg by mouth | | | | | Activ | | succinate | Daily. | | | | | e | | (TOPROL-XL) 25 mg 24 | | | | | | | | hr tablet | | | | | | | + + +--------+---------+------+------+-------+ | traMADol (ULTRAM) | Take 50 mg by mouth | | | | | Activ | | 50 mg tablet | every 8 hours as | | | | | e | | | needed for Pain. | | | | | | + + +--------+---------+------+------+-------+ | insulin glargine | Inject under the | | | | | Activ | | (BALAJI RIZVI) | skin. 18 ml daily | | | | | e | | 300 units/mL | | | | | | | | concentrated | | | | | | | | injection (pen) | | | | | | | + + +--------+---------+------+------+-------+ | Calcium | as needed | | | | | Activ | | Polycarbophil | | | | | | e | | (FIBER-CAPS PO) | | | | | | | + + +--------+---------+------+------+-------+ | cholecalciferol | Take 1 tablet by | | | 06/2 | | Activ | | (VITAMIN D-3) 5000 | mouth Daily. | | | 5/20 | | e | | units TABS | | | | 18 | | | + + +--------+---------+------+------+-------+ | | Take 5 mg by mouth 2 | | | | | Activ | | oxyCODONE-acetaminop | times daily. | | | | | e | | hen (PERCOCET) 5-325 | | | | | | | | mg per tablet (ED | | | | | | | | prepack) | | | | | | | + + +--------+---------+------+------+-------+ Active Problems + + + | Problem | Noted Date | + + + | Urinary hesitancy due to benign prostatic hyperplasia | 03/31/2017 | + + + | Metabolic acidosis | 03/26/2016 | + + + | Chronic kidney disease, stage III (moderate) (HCC) | 12/28/2015 | + + + | [...] kidney disease | | + + + Resolved Problems + + + + | Problem | Noted | Resolved | | | Date | Date | + + + + | Caregiver stress | 12/28/19 | | | | 16 | 8 | + + + + Family History + + +---------+ + | Medical History | Relation | Name | Comments | + + +---------+ + | Hypertension | Brother | | | + + +---------+ + | No known problems | Daughter | PAZ | | | | | KLINE | | + + +---------+ + | Stroke | Father | | | + + +---------+ + | Heart attack | Mother | | | + + +---------+ + | Kidney disease | Neg Hx | | | + + +---------+ + + +---------+ + + | Relation | Name | Status | Comments | + +---------+ + + | Brother | | Alive | | + +---------+ + + | Daughter | PAZ | Alive | | | | KLINE | | | + +---------+ + + | Father | | | | + +---------+ + + | Mother | | | | + +---------+ + + Social History + + + +--------+ + | Tobacco Use | Types | Packs/Day | Years | Date | | | | | Used | | + + + +--------+ + | Light Tobacco Smoker | Cigarettes, Cigars | | | Started: 1958 | + + + +--------+ + + +---+---+---+ | Smokeless Tobacco: | | | | | Never Used | | | | + +---+---+---+ + + | Comments: 5-6 cigarettes a month, Cigarettes: 1 PPD age 12-30 | + + + + +---------+ + | Alcohol Use | Drinks/We | oz/Week | Comments | | | ek | | | + + +---------+ + | Yes | | | social/rare | + + +---------+ + + + + | Sex Assigned at | Date Recorded | | | | + + + | Not on file | | + + + Last Filed Vital Signs + + + + | Vital Sign | Reading | Time Taken | + + + + | Blood Pressure | 148/89 | 04/06/2018 1403 PDT | + + + + | Pulse | 78 | 04/06/2018 1403 PDT | + + + + | Temperature | 36.5 C (97.7 F) | 04/06/2018 1252 PDT | + + + + | Respiratory Rate | 16 | 04/06/2018 1252 PDT | + + + + | Oxygen Saturation | 99% | 04/06/20181251 PDT | + + + + | Inhaled Oxygen | - | - | | Concentration | | | + + + + | Weight | 99.8 kg (220 lb) | 04/06/20181402 PDT | + + + + | Height | 188 cm (6' 2") | 04/06/20181402 PDT | + + + + | Body Mass Index | 28.25 | 04/06/20181402 PDT | + + + + Plan of Treatment +--------+---------+ + + + | Date | Type | Specialty | Care Team | Description | +--------+---------+ + + + | 04/05/ | Office | | [place], | | | 2019 | Visit | | [address] | | | | | | [address] | | | | | | [address] [place] | | | | | | [address] | | | | | | | | +--------+---------+ + + + + + + + + | Health Maintenance | Due Date | Last Done | Comments | + + + + + | Hepatitis C | | | | | Screening | 6 | | | + + + + + | Diabetic Eye Exam | | | | | | 4 | | | + + + + + | Diabetic Foot Exam | | | | | | 4 | | | + + + + + | Vaccine: | | | | | Dtap/Tdap/Td (1 - | 5 | | | | Tdap) | | | | + + + + + | Vaccine: Zoster (1 | | | | | of 2) | 6 | | | + + + + + | Vaccine: | | | | | Pneumococcal 65+ | 1 | | | | Low/Medium Risk (1 | | | | | of 2 - PCV13) | | | | + + + + + | Adult Annual | | | | | Wellness Visit | 5 | | | + + + + + | Hemoglobin A1c Q3 | | 03/24/2017, 09/24/2016, | | | Months | 7 | 02/12/2016, Additional history | | | | | exists | | + + + + + | Vaccine: Influenza | | | | | (Season Ended) | 9 | | | + + + + + | AAA Screening | Completed | 09/10/2017 | | + + + + + [...] +--------+ +---------+ | MEDICARE | MEDICA | [id number] | Medica | +1- | | | | RE | | re | [phone] | | | | PART A | | | | | | | AND B | | | | | + +--------+ +--------+ +---------+ | [employer] [place] | UNITED | [id number] | Indemn | [phone]- | | | | OF | | ity | 1000 | | | | [place] | | | | | | | [...] + +--------+ +--------+ + + | KRISTA SULLIAVN | Person | Self [birth year] | Home: | [address] | | | al/Fam | | 1945 | [phone] | [place] [address] | | | [place] | | | [phone] | | + +--------+ +--------+ + +
--- OUTSIDE RECORDS SUMMARY | ~2019-01-16 | XMS | Clinical Summary ---
Demographics + + + | Address | [address] | | | [place] [address] | + + + | Home Phone | | + + + | Preferred Language | Unknown | + + + | Marital Status | | + + + | Mandaeism Affiliation | Unknown | + + + | Race | Unknown | + + + | Ethnic Group | Unknown | + + + Author + + + | Author | [facility] | + + + | Organization | [facility] | + + + | Address | Unknown | + + + | Phone | Unavailable | + + + Support + + + + + | Name | Relationship | Address | Phone | + + + + + | Krista Sullivan | [address] | [place], | | | | | [place] [address] | | + + + + + Care Team Providers + +------+ + | Care Crew Foreman Name | Role | Phone | + [...] +------+-------+ + | MEDICARE | MEDICA | [id number] | | | [address] | | | RE | | | | [place] [address] | | | IP-OP | | | | | + +--------+ +------+-------+ + | [employer] [place] | MUTUAL | [id number] | | | | | | OF | | | | | | | [place] | | | | | + +--------+ [...] | Self | [birth year] | Home: | [address] | | | al/[place]o | | 1945 | [phone] | [place] | | | [place] | | | [phone] | [phone] | + +--------+ +--------+ + +
--- OUTSIDE RECORDS SUMMARY | ~2019-01-16 | XMS | Clinical Summary ---
Demographics + + + | Address | [address] | | | [place] [address] | + + + | Home Phone | | + + + | Preferred Language | Unknown | + + + | Marital Status | | + + + | Scientologist Affiliation | 1028 | + + + | Race | Unknown | + + + | Ethnic Group | Unknown | + + + Author + + + | Author | [facility] | | | and Danielana | + + + | Organization | [facility] | [...] [address] | | | | | [facility] [place] | | | | | [address] | | + + + + + | Paz Kline | ECON | [place] | | | | | [address] | | + + + + + Care Team Providers + +------+ + | Care Personal Injury Law Specialist Name | Role | Phone | + [...] [place] | | | | | | [phone] | | | | | | | [...] +--------+ +---------+ | MEDICARE | MEDICA | [id number] | Medica | +1- | | | | RE | | re | [phone] | | | | PART A | | | | | | | AND B | | | | | + +--------+ +--------+ +---------+ | [employer] [place] | UNITED | [id number] | Indemn | [phone]- | | | | OF | | ity | 1000 | | | | [place] | | | | | | | [...] | [birth year] | Home: | [address] | | | al/Fam | | 1945 | [phone] | [place] [address] | | | [place] | | | [address] | | + +--------+ +--------+ + +
[~2019-01-16 06:32] MED LIST changes: +ADULT LOW DOSE81 MG PO; +CRESTOR40 MG NG; +CYCLOBENZAPRINE10 MG PO; +FIBER500 MG PO; +FOLIC ACID1 MG PO; +ICAPS TABLET1 EACH PO; +PROZAC10 MG PO; +SILDENAFIL20 MG PO; +VITAMIN D5000 UNIT PO
--- OUTSIDE RECORDS SUMMARY | 2019-01-16 06:34 | XMS ---
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 Clare has no Care Guidelines for this patient. Luc VISIT COUNT (12 MO.) 3 SHAYE Perez TOTAL 3 NOTE: Visits indicate total known visits. ED/C VISIT TRACKING (12 MO.) 01/16/2019 06:32 SHAYE Sax[facility] [place] TYPE: Emergency COMPLAINT: - FLU SYMPTOMS 10/03/2018 15:50 [facility] [place] TYPE: Emergency COMPLAINT: - ABD PAIN DIAGNOSES: - Essential (primary) hypertension - Hyperlipidemia, unspecified - nursing home (current) use of insulin - Other fci (current) drug therapy - Acquired absence of other specified parts of digestive tract - Noninfective gastroenteritis and colitis, unspecified - Personal history of other malignant neoplasm of large intestine - Type 2 diabetes mellitus without complications - Lower abdominal pain, unspecified 02/03/2018 18:57 [facility]E [facility] [place] TYPE: Emergency COMPLAINT: - COLITIS INPATIENT VISIT TRACKING (12 MO.) No inpatient visits to display in this time frame [email or web address]
[2019-01-16] MEDS ORDERED: VICTOZA 2-0.6 MG/0.1 SUB-Q (06:51)
[2019-01-16] MEDS ORDERED: DOXYCYCLINE HY100 MG PO (10:43)
[2019-01-16] MEDS ORDERED: ONDANSETRON ODT8 MG PO (10:45)
== END 2019-01-16 10:55 | disposition home or self-care (01) ==
LOC: ED 06:32
DX: J20.9 Acute bronchitis, unspecified (principal); E11.9 Type 2 diabetes mellitus without complications; I10 Essential (primary) hypertension; E78.5 Hyperlipidemia, unspecified; Z79.899 Other long term (current) drug therapy; Z79.891 Long term (current) use of opiate analgesic; Z79.4 Long term (current) use of insulin; Z79.82 Long term (current) use of aspirin
CPT/HCPCS: 71046; 74177; 80053; 81001; 83605; 85025; 87502; 96361; 99284-25; J2405; J7030; Q9967

== ENCOUNTER 2021-02-24 19:06 | Emergency (ER) | payer MEDICARE, OTHER ==
[~2021-02-24] VITALS: Ht 185.4 cm; Wt 101.2 kg
[~2021-02-24 19:06] MED LIST changes: +DOXYCYCLINE HY100 MG PO; +ONDANSETRON ODT8 MG PO; +VICTOZA 2-0.6 MG/0.1 SUB-Q
[2021-02-24] MEDS ORDERED: LEVOFLOXACIN500 MG PO (22:47)
== END 2021-02-24 23:18 | disposition home or self-care (01) ==
LOC: ED 19:06
DX: N39.0 Urinary tract infection, site not specified (principal); Z20.822 Contact with and (suspected) exposure to COVID-19; E11.9 Type 2 diabetes mellitus without complications; I10 Essential (primary) hypertension; E78.5 Hyperlipidemia, unspecified; F17.200 Nicotine dependence, unspecified, uncomplicated; Z85.038 Personal history of other malignant neoplasm of large intestine; Z79.899 Other long term (current) drug therapy; Z79.891 Long term (current) use of opiate analgesic; Z79.82 Long term (current) use of aspirin; Z79.4 Long term (current) use of insulin
CPT/HCPCS: 71046; 80053; 81001; 83605; 85025; 87040; 87077; 87088; 87186; 99283-25; C9803; U0003

== ENCOUNTER 2021-07-23 07:00 | Day surgery (SDC) | payer MEDICARE, OTHER ==
[~2021-07-23] VITALS: Ht 185.4 cm; Wt 97.0 kg
[~2021-07-23 07:00] MED LIST changes: +LEVOFLOXACIN500 MG PO
--- NOTE | 2021-07-23 09:35 | NUR ---
07/23/21 0935 Narcisa Marin 0926 PT TO PACU ALERT, AWAKE AND TALKING. REQUESTS SOMETHING TO DRINK, PT DRINKING WATER TOLERATES WELL.
--- NOTE | 2021-07-23 15:07 | NUR ---
PT ALERT, ORIENTED AND LAMENTED THE FACT THAT HE HOPES HE DID NOT WAIT TOO LONG. HAS HAD DISCOMFORT FOR QUITE SOME TIME. HAVING SCOPE AND VERY ANXIOUS ABOUT RESULTS. HAD PRAYER WITH PT AND WILL FOLLOW
--- NOTE | 2021-07-24 12:38 | OR ---
[facility] [address] [place], [place] [address] Signed DATE OF OPERATION: 07/23/2021 SURGEON: Betty Mohr MD PREOPERATIVE DIAGNOSES: 1. Persistent diarrhea and some right lower abdominal pain. 2. History of sigmoid colectomy for cancer in 2002. 3. History of concurrent cholecystectomy. POSTOPERATIVE DIAGNOSES: 1. No evidence of colitis grossly. 2. Multiple polyps. PROCEDURES: 1. Total colonoscopy to cecum with cold snare polypectomy of appendiceal orifice, polyp and cold morcellation excision of right colon polyp, transverse colon polyp, left colon polyp, at 40 cm and 30 cm. 2. Biopsy of rectum, transverse and right colon. ANESTHESIA: Intravenous sedation, fentanyl 100 mcg and Versed 7 mg. INDICATION: This 76-year-old white man is a patient of Yulia Daugherty and underwent sigmoid colectomy in [place], [place] for colon cancer in 2002. Concurrent cholecystectomy was performed. He has recently had persistent diarrhea of blood and complaints of right lower abdominal pain. He dates this phenomenon back to a back injury suffered in September of 2020 following a fall. He is admitted at this time to undergo colonoscopy to better characterize the problem, understand the risks of bleeding, infection, and perforation. FINDINGS: The prep was excellent. Complete colonoscopy was undertaken to the cecum. Evidence of the anastomosis from prior sigmoid resection was noted and there was wide patency to anastomosis. He had several polyps throughout the colon, 6 in total. All were excised completely. There is no evidence of colitis or other causes of his diarrhea. I suspect it is related to history of cholecystectomy in fact. DESCRIPTION OF PROCEDURE: The patient was brought to the endoscopy suite and placed in lateral decubitus position, Electronically Signed By: BETTY MOHR MD 07/24/21 1238 PATIENT NAME: KRISTA SULLIVAN OPERATIVE REPORT DATE OF : 47 REPORT #: [id number] PHYSICIAN: BETTY MOHR MD PCP: YULIA DAUGHERTY REPORT IS CONFIDENTIAL AND NOT TO BE RELEASED WITHOUT AUTHORIZATION [facility] [address] [place], [place] [address] Signed given intravenous sedation to the point of slurred speech and nystagmus. Digital rectal examination was normal. An Olympus video colonoscope was passed in the rectum and manipulated to the area of the anastomosis, which was widely patent. The scope was passed beyond it without problem. There were left-sided small polyps and a cluster one was excised with cold snare technique and additionally excised. The scope was advanced beyond this ultimately to the cecum, the ileocecal valve and appendiceal orifice were normal. At the appendiceal orifice was an adenomatous polyp, which was easily accessed and excised with cold snare technique. The scope was withdrawn and biopsy taken of the right colon to assess for occult colitis and another small polyp was noted in the right colon, this was excised with cold morcellation technique. Further withdrawal noted another small polyp certainly adenomatous in the transverse colon, it too was excised with cold morcellation technique. Withdrawal of scope to the left colon showed an additional polyp at 40 cm and one at 30 cm, both excised with cold morcellation technique. Withdrawal of scope after biopsy of the left colon to assess for occult colitis was then undertaken. The rectum did not appear to have overt colitis, but biopsies were obtained to assess for colitis nevertheless. The scope was removed after retroflexed view was normal. Scope was removed and the patient was taken to the recovery room in good condition. CONCLUDING DIAGNOSIS: 1. Multiple polyps. 2. No evidence of occult colitis. PLAN: His diarrhea may well be related to prior cholecystectomy. On the basis of this, I will recommend Questran 4 g p.o. q.i.d. tapering to the lowest effective dose. We will see him back in the office in 4-6 weeks. Given the number of polyps he had, I would recommend a repeat colonoscopy in one year. MD HERMELINDA Pena/JOELLEL /[id number] cc: TROY Wang Electronically Signed By: BETTY MOHR MD 07/24/21 1238 PATIENT NAME: KRISTA SULLIVAN OPERATIVE REPORT DATE OF : 47 REPORT #: [id number] PHYSICIAN: BETTY MOHR MD PCP: YULIA DAUGHERTY REPORT IS CONFIDENTIAL AND NOT TO BE RELEASED WITHOUT AUTHORIZATION [facility] [address] [place] [address] [place], [place] [address] Signed Copies: YULIA DAUGHERTY ~ Electronically Signed By: BETTY MOHR MD 07/24/21 1238 PATIENT NAME: KRISTA SULLIVAN OPERATIVE REPORT DATE OF : 47 REPORT #: [id number] PHYSICIAN: BETTY MOHR MD PCP: YULIA DAUGHERTY REPORT IS CONFIDENTIAL AND NOT TO BE RELEASED WITHOUT AUTHORIZATION
== END 2021-07-23 10:00 | disposition home or self-care (01) ==
LOC: DS 07:00
PROVIDERS: ATTEND Surgery
PROC: 0DBK8ZX Excision of Ascending Colon, Via Natural or Artificial Opening Endoscopic, Diagnostic (ICD-10-PCS; 2021-07-23)
PROC: 0DBP8ZX Excision of Rectum, Via Natural or Artificial Opening Endoscopic, Diagnostic (ICD-10-PCS; 2021-07-23)
PROC: 0DBM8ZX Excision of Descending Colon, Via Natural or Artificial Opening Endoscopic, Diagnostic (ICD-10-PCS; 2021-07-23)
PROC: 0DBH8ZX Excision of Cecum, Via Natural or Artificial Opening Endoscopic, Diagnostic (ICD-10-PCS; principal; 2021-07-23 08:15)
DX: D12.0 Benign neoplasm of cecum (principal); D12.4 Benign neoplasm of descending colon; D12.2 Benign neoplasm of ascending colon; D12.3 Benign neoplasm of transverse colon; M15.9 Polyosteoarthritis, unspecified; E11.9 Type 2 diabetes mellitus without complications; I10 Essential (primary) hypertension; Z85.038 Personal history of other malignant neoplasm of large intestine; Z87.19 Personal history of other diseases of the digestive system; Z90.49 Acquired absence of other specified parts of digestive tract; Z98.0 Intestinal bypass and anastomosis status
CPT/HCPCS: 99153; G0500; J2250; J3010; J7121

== ENCOUNTER 2022-01-08 10:48 | Emergency (ER) | payer MEDICARE, OTHER ==
[~2022-01-08] VITALS: Ht 185.4 cm; Wt 96.6 kg
--- OUTSIDE RECORDS SUMMARY | 2022-01-08 10:52 | XMS ---
PreManage Notification: KRISTA SULLIVAN Security Oil Exploration Engineer Events No recent Security Events currently on file CRITERIA MET - PDMP CARE PROVIDERS YULIA HAIRSTON Physician Dining Room Captain 01/18/2019-Current PHONE: Unknown Clare has no Care Guidelines for this patient. EDonald VISIT COUNT (12 MO.) 2 SHAYE Perez TOTAL 2 NOTE: Visits indicate total known visits. 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
[2022-01-08] MEDS ORDERED: PREDNISONE10 MG PO (12:25)
== END 2022-01-08 12:42 | disposition home or self-care (01) ==
LOC: ED 10:48
DX: M10.061 Idiopathic gout, right knee (principal); M06.9 Rheumatoid arthritis, unspecified; M19.90 Unspecified osteoarthritis, unspecified site; Z85.038 Personal history of other malignant neoplasm of large intestine; E11.9 Type 2 diabetes mellitus without complications; I10 Essential (primary) hypertension; E78.5 Hyperlipidemia, unspecified; F17.200 Nicotine dependence, unspecified, uncomplicated; Z79.899 Other long term (current) drug therapy; Z79.82 Long term (current) use of aspirin; Z79.4 Long term (current) use of insulin
CPT/HCPCS: 99283; J7512

== ENCOUNTER 2022-09-20 06:52 | Day surgery (SDC) | payer MEDICARE, OTHER ==
[~2022-09-20] VITALS: Ht 185.4 cm; Wt 100.0 kg
[~2022-09-20 06:52] MED LIST changes: +PREDNISONE10 MG PO
--- NOTE | 2022-09-20 10:12 | NUR ---
PT ALERT, ORIENTED AND HERE FOR ROUTINE SCOPE. PT HAS HAD SO MANY, HE COULDN'T COUNT-HAS BATTLED COLON CANCER. GOOD ATTITUE ALL QUESTIONS ASKED ANSWERED. HIS FRANSISCA WILL RETURN FOR DC. PT REQUESTED PRAYER, WILL FOLLOW
--- NOTE | 2022-09-22 13:32 | OR ---
[facility] [address] [place], [place] [address] Signed DATE OF OPERATION: 09/20/2022 SURGEON: Betty Mohr MD PREOPERATIVE DIAGNOSES: 1. History of sigmoid resection for colon cancer 2002. 2. History of multiple recurrent polyps; six polyps 2020. POSTOPERATIVE DIAGNOSIS: Polyps x5. PROCEDURE: Total colonoscopy to cecum with cold snare polypectomy x2, cold morcellation polypectomy x3. ANESTHESIA: Intravenous sedation; fentanyl 100 mcg and Versed 6 mg. INDICATION: This 77-year-old white man is a patient of TROY Wang. He underwent sigmoid resection for colon cancer in [place], [place] in 2002. He has had followup colonoscopy by me since that time and episodic findings of polyps. In 2020, he underwent colonoscopy, was found to have six tubular adenomas. He is admitted at this time to undergo short-term surveillance (one year) given the number of polyps excised. He understands the risk of bleeding, infection, and perforation related to colonoscopy and wished to proceed. FINDINGS: The prep was excellent. Complete colonoscopy was undertaken of the cecum without question. The anastomosis was widely patent. He had five polyps identified, one in the cecum, two in the right colon and two in the transverse colon, all excised. PROCEDURE IN DETAIL: The patient was brought to the endoscopy suite and placed in the lateral decubitus position, given intravenous sedation to the point of slurred speech and nystagmus. Digital rectal examination was normal. An Olympus video colonoscope was passed in the rectum and manipulated through a widely patent anastomosis ultimately to the cecum. The ileocecal valve and appendiceal orifice were normal. Scope was withdrawn and immediately noted was a small sessile polyp, this Electronically Signed By: BETTY MOHR MD 09/22/22 1332 PATIENT NAME: KRISTA SULLIVAN OPERATIVE REPORT DATE OF : 47 REPORT #: [id number] PHYSICIAN: BETTY MOHR MD PCP: YULIA HAIRSTON REPORT IS CONFIDENTIAL AND NOT TO BE RELEASED WITHOUT AUTHORIZATION [facility] [address] [place], [place] [address] Signed was excised with cold snare polypectomy technique and extracted and passed for pathology. The scope was further withdrawn in the mid ascending colon where two small polyps, one excised by cold snare technique, the other by cold morcellation technique. Further withdrawal showed two additional small polyps in the transverse colon, both excised with cold morcellation technique. The remaining colon was normal. Retroflexed view was normal. Scope was removed and the patient was taken to the recovery room in good condition. CONCLUDING DIAGNOSIS: Polyps x5. PLAN: Recommend repeat colonoscopy in 1 to 2 years, sooner if symptoms should occur. He will return to the ongoing care of TROY Wang. MD HERMELINDA Pena/CHARO /[id number] cc: TROY Wang Copies: YULIA HAIRSTON ~ Electronically Signed By: BETTY MOHR MD 12/11/22 1332 PATIENT NAME: NATEKRISTA SCOTT OPERATIVE REPORT DATE OF : 47 REPORT #: [id number] PHYSICIAN: BETTY MOHR MD PCP: YULIA HAIRSTON REPORT IS CONFIDENTIAL AND NOT TO BE RELEASED WITHOUT AUTHORIZATION
--- NOTE | 2022-09-25 12:02 | PATH ---
[facility] [address] [place], [place] [address] Signed SPECIMEN(S): A CECUM POLYP SPECIMEN(S): B ASCENDING/RIGHT COLON POLYPS SPECIMEN(S): C TRANSVERSE COLON POLYPS SPECIMEN SOURCE: A. CECUM POLYP B. ASCENDING/RIGHT COLON POLYPS C. TRANSVERSE COLON POLYPS CLINICAL HISTORY: History of colitis, history of resection of colon, history of adenomatous polyps. Postop: Polyps. FINAL PATHOLOGIC DIAGNOSIS: A. Cecal polyp, biopsy: - Tubular adenoma. B. Ascending/right colon polyp, biopsy: - Fragments of tubular adenoma. C. Transverse colon polyps, biopsy: - Fragments of tubular adenoma and hyperplastic colonic mucosa. AMB:cml:C2NR MICROSCOPIC EXAMINATION: Histologic sections of all submitted blocks are examined by light microscopy. These findings, together with the gross examination, support the pathologic diagnosis. GROSS DESCRIPTION: Three specimens are received in three containers, labeled "DD." A. The specimen, labeled "DD, cecum polyp," is received in formalin and consists of one byrd soft tissue fragment that measures 0.3 cm in greatest dimension. The specimen is entirely submitted in cassette (A1). B. The specimen, labeled "DD, ascending/right colon polyp," is received in formalin and consists of two byrd soft tissue fragments that measure 0.2-0.3 cm in greatest dimension. The specimen is entirely submitted in cassette (B1). C. The specimen, labeled "DD, transverse colon polyp," is received in formalin and consists of three byrd soft tissue fragments that measure 0.2-0.3 cm in greatest dimension. The specimen is entirely submitted in cassette (C1). PATIENT NAME: KRISTA SULLIVAN PATHOLOGY DATE OF : 47 REPORT #: [id number] PHYSICIAN: MELA ROCA PCP: YULIA HAIRSTON REPORT IS CONFIDENTIAL AND NOT TO BE RELEASED WITHOUT AUTHORIZATION [facility] [address] [facility] [place] [address] Signed VB (under the direct supervision of a pathologist) The Gross Description was prepared using a voice recognition system. The report was reviewed for accuracy; however, sound-alike word errors, addition and/or deletions may occur. If there is any question about this report, please contact Client Services. PERFORMING LABORATORY: The technical component was performed by [facility] [employer], [address] [place] [address] (CLIA# [id number]). Professional interpretation was performed by [facility], [address] [address] (CLIA#: [id number]). Diagnostician: Merissa Lang MD Pathologist Electronically Signed 09/25/2022 Copies: ~ PATIENT NAME: KRISTA SULLIVAN PATHOLOGY DATE OF : 47 REPORT #: [id number] PHYSICIAN: MELA PATHOLOGY PCP: YULIA HAIRSTON REPORT IS CONFIDENTIAL AND NOT TO BE RELEASED WITHOUT AUTHORIZATION
== END 2022-09-20 09:42 | disposition home or self-care (01) ==
LOC: OPS 06:52 → DS 06:52 → OPS 08:15 → DS 11:30
PROVIDERS: ATTEND Surgery
PROC: 0DBM8ZZ Excision of Descending Colon, Via Natural or Artificial Opening Endoscopic (ICD-10-PCS; 2022-09-20)
PROC: 0DBK8ZZ Excision of Ascending Colon, Via Natural or Artificial Opening Endoscopic (ICD-10-PCS; principal; 2022-09-20 08:15)
DX: Z12.11 Encounter for screening for malignant neoplasm of colon (principal); Z86.010 Personal history of colon polyps; Z87.19 Personal history of other diseases of the digestive system; I10 Essential (primary) hypertension; E11.9 Type 2 diabetes mellitus without complications; E78.5 Hyperlipidemia, unspecified; M15.9 Polyosteoarthritis, unspecified; Z85.038 Personal history of other malignant neoplasm of large intestine; D12.2 Benign neoplasm of ascending colon; D12.0 Benign neoplasm of cecum; D12.3 Benign neoplasm of transverse colon
CPT/HCPCS: 88305; 99153; G0500; J2250; J3010; J7121

== ENCOUNTER 2022-10-06 13:10 | Emergency (ER) | payer MEDICARE, OTHER ==
[~2022-10-06] VITALS: Ht 185.4 cm; Wt 99.8 kg
--- OUTSIDE RECORDS SUMMARY | 2022-10-06 13:12 | XMS ---
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 EDonald VISIT COUNT (12 MO.) 2 SHAYE Perez TOTAL 2 NOTE: Visits indicate total known visits. ED/UCC VISIT TRACKING (12 MO.) 10/06/2022 13:[address] [facility] [place] TYPE: Emergency COMPLAINT: - RT LEG PAIN 01/08/2022 10:[address] [facility] [place] TYPE: Emergency COMPLAINT: - R KNEE PAIN DIAGNOSES: - Other intermission coordinator (current) drug therapy - Hyperlipidemia, unspecified - Essential (primary) hypertension - Pain in right knee - Personal history of other malignant neoplasm of large intestine - Idiopathic gout, right knee - Type 2 diabetes mellitus without complications - Rheumatoid arthritis, unspecified - Nicotine dependence, unspecified, uncomplicated - detention (current) use of insulin - terminal clerk (current) use of aspirin - Unspecified osteoarthritis, unspecified site INPATIENT VISIT TRACKING (12 MO.) No inpatient visits to display in this time frame [email or web address]
== END 2022-10-06 15:18 | disposition home or self-care (01) ==
LOC: ED 13:10
PROC: 0S9C3ZZ Drainage of Right Knee Joint, Percutaneous Approach (ICD-10-PCS; principal; 2022-10-06)
DX: M25.461 Effusion, right knee (principal); E11.9 Type 2 diabetes mellitus without complications; I10 Essential (primary) hypertension; E78.5 Hyperlipidemia, unspecified; F17.200 Nicotine dependence, unspecified, uncomplicated; Z79.899 Other long term (current) drug therapy; Z79.4 Long term (current) use of insulin
CPT/HCPCS: 20610; 99283-25; A9270

== ENCOUNTER 2024-02-16 06:08 | Day surgery (SDC) | payer MEDICARE, OTHER ==
[~2024-02-16] VITALS: Ht 185.4 cm; Wt 100.0 kg
[~2024-02-16 06:08] MED LIST changes: +CARVEDILOL25 MG PO; +CHOLESTYRAMINE378 GM PO; +COLCRYS0.6 MG PO; +GABAPENTIN300 MG PO; +LOSARTAN POTAS100 MG PO; +MIDAZOLAM HCL 5 MG/5 ML VIAL IV PRN; +TRULICITY1.5 MG/0.5 SQ; +ZYLOPRIM100 MG PO; +fentaNYL citrate 100 MCG/2 ML VIAL IV PRN
[2024-02-16 06:21] VITALS: BP 158/72
[2024-02-16] MEDS ORDERED: HYDROCODON-ACE1 EA10 PO (06:31)
[2024-02-16] MEDS ORDERED: HUMIRA40 MG/0.8 SUB-Q (06:32)
[2024-02-16] MEDS ORDERED: fentaNYL citrate 100 MCG/2 ML VIAL ONE (06:48)
[2024-02-16] MEDS ORDERED: MIDAZOLAM HCL 5 MG/5 ML VIAL ONE (06:48)
[2024-02-16] MEDS ORDERED: ASPIRIN81 MG PO (06:50)
[2024-02-16] MEDS ORDERED: LACTATED RINGER'S 1,000 ML IV SCH (07:00)
[2024-02-16] MEDS ORDERED: LIDOCAINE HCL 1% 5 ML SDV INJ ONE (07:00)
[2024-02-16] MEDS ORDERED: IBLOOD GLUCOSE TEST STRIP 1 EA TEST VI PRN (07:00)
[2024-02-16 08:38] VITALS: BP 122/66
--- NOTE | 2024-02-16 08:45 | NUR ---
02/16/24 0845 Lanette Cleary 0820 PT ARRIVED IN PACU AWAKE WITH NO C/O'S. ABD SOFT AND PASSING FLATUS. 0830 DR AT BEDSIDE. ALL QUESTIONS ANSWERED. 0840 SITTING UP IN BED SIPPING ON WATER. DC INSTRUCTIONS GIVEN. 0845 GETTING DRESSED.
--- NOTE | 2024-02-20 12:53 | PATH ---
[facility] [address] [facility] [place], [place] [address] Signed SPECIMEN(S): A ASCENDING POLYP SPECIMEN(S): B ASCENDING POLYP SPECIMEN(S): C TRANSVERSE POLYPS SPECIMEN(S): D DESCENDING POLYP SPECIMEN SOURCE: A. ASCENDING POLYP B. ASCENDING POLYP C. TRANSVERSE POLYPS D. DESCENDING POLYP CLINICAL HISTORY: History of tubular adenomas, history of sigmoid resection for malignancy. FINAL PATHOLOGIC DIAGNOSIS: A. Ascending polyp: - Tubular adenoma (multiple fragments). B. Ascending polyp: - Tubular adenoma (one fragment). C. Transverse polyps: - Tubular adenoma (multiple fragments). D. Descending polyp: - Tubular adenoma (one fragment). JVR:zahra MICROSCOPIC EXAMINATION: Histologic sections of all submitted blocks are examined by light microscopy. These findings, together with the gross examination, support the pathologic diagnosis. GROSS DESCRIPTION: A. The specimen, labeled and designated "[place], ascending colon polyp," is received in formalin and consists of multiple byrd soft tissue fragments, 0.1-0.7 cm. Entirely submitted in (A1). B. The specimen, labeled and designated "[place], ascending polyp #2," is received in formalin and consists of one byrd soft tissue fragment, 0.4 cm. Entirely submitted in (B1). C. The specimen, labeled and designated "[place], transverse polyps," is received in formalin and consists of four byrd soft tissue fragments, ranging from 0.2-0.4 cm. Entirely submitted in (C1). D. The specimen, labeled and designated "[place], descending polyp," is PATIENT NAME: KRISTA SULLIVAN PATHOLOGY DATE OF : 47 REPORT #: [id number] PHYSICIAN: MELA ROCA PCP: YULIA HAIRSTON REPORT IS CONFIDENTIAL AND NOT TO BE RELEASED WITHOUT AUTHORIZATION [facility] [address] [place], [place] [address] Signed received in formalin and consists of two byrd soft tissue fragments, ranging from 0.2-0.3 cm. Entirely submitted in (D1). VB (under the direct supervision of a pathologist) The Gross Description was prepared using a voice recognition system. The report was reviewed for accuracy; however, sound-alike word errors, addition and/or deletions may occur. If there is any question about this report, please contact Client Services. PERFORMING LABORATORY: Technical component was performed by [facility], [address] [place] [address] (CLIA# [id number]). Professional interpretation was performed by [facility], [address] [place] [id number] (CLIA#: [id number]). Diagnostician: Anant Mtz MD Pathologist Electronically Signed 02/19/2024 Copies: ~ PATIENT NAME: KRISTA SULLIVAN PATHOLOGY DATE OF : 47 REPORT #: [id number] PHYSICIAN: MELA ROCA PCP: YULIA HAIRSTON REPORT IS CONFIDENTIAL AND NOT TO BE RELEASED WITHOUT AUTHORIZATION
--- NOTE | 2024-02-21 10:52 | OR ---
[facility] [address] [place], [place] [address] Signed DATE OF OPERATION: 02/16/2024 SURGEON: Betty Mohr MD PREOPERATIVE DIAGNOSES: 1. History of sigmoid resection for cancer (2002). 2. Episodic recurrent tubular adenomas. 3. Tubular adenomas in 2021. POSTOPERATIVE DIAGNOSIS: Polyps x6 (two in the proximal ascending colon, two in transverse colon, and two in the left colon and shai-sigmoid). PROCEDURES: Total colonoscopy to cecum with cold snare polypectomy x1 and cold morcellation polypectomy x5. ANESTHESIA: Intravenous sedation; fentanyl 100 mcg and Versed 8 mg. INDICATIONS: This 78-year-old white man is a patient of TROY Wang. He underwent sigmoid resection in [place], [place] in 2002 for cancer. He has had episodic colonoscopy followup by me with resection of adenomatous polyps episodically. His last colonoscopy was in 2021, where three tubular adenomas were resected. He is currently symptom free. He does have mild constipation [id number]. He has had no blood per rectum. He now is on Humira for arthritis problems, which is markedly beneficial to his symptoms. He is now to undergo surveillance colonoscopy, understand the risk of bleeding, infection, and perforation. FINDINGS: The prep was good. Complete colonoscopy was undertaken of the cecum. The anastomosis was widely patent. There were six polyps in total, all excised completely. DESCRIPTION OF PROCEDURE: The patient was brought to the endoscopy suite and placed in lateral decubitus position given intravenous sedation to the point of slurred speech and nystagmus. Full cardiopulmonary monitoring was maintained. Digital rectal examination was normal. An Olympus video colonoscope was passed into the rectum and manipulated throughout the Electronically Signed By: BETTY MOHR MD 02/21/24 1052 PATIENT NAME: KRISTA SULLIVAN OPERATIVE REPORT DATE OF : 47 REPORT #: [id number] PHYSICIAN: BETTY MOHR MD PCP: UYLIA HAIRSTON REPORT IS CONFIDENTIAL AND NOT TO BE RELEASED WITHOUT AUTHORIZATION [facility] [address] [place], [place] [address] Signed colon. A relatively larger 1+ cm polyp was noted in the proximal ascending colon and another small polyp nearby. The larger polyp was excised with cold snare technique as well as morcellation ablation and another small polyp not far from it similarly excised with cold morcellation technique alone. The scope was withdrawn and two small polyps were noted in the transverse colon, both excised completely. Further withdrawal showed two other polyps, one in the left colon and one in the shai-sigmoid, both excised with cold morcellation technique. The scope was withdrawn through the widely patent anastomosis. Retroflexed view in the rectum was normal. Scope was removed. The patient was taken to the recovery room in good condition. CONCLUDING DIAGNOSIS: Polyps x6. PLAN: Recommend repeat colonoscopy in one year due to the number of polyps excised. He will return to the ongoing care of TROY Wang. MD HERMELINDA Pena/CHARO /[id number] cc: TROY Wang Copies: YULIA HAIRSTON ~ Electronically Signed By: BETTY MOHR MD 02/21/24 1052 PATIENT NAME: KRISTA SULLIVAN OPERATIVE REPORT DATE OF : 47 REPORT #: [id number] PHYSICIAN: BETTY MOHR MD PCP: YULIA HAIRSTON REPORT IS CONFIDENTIAL AND NOT TO BE RELEASED WITHOUT AUTHORIZATION
== END 2024-02-16 08:50 | disposition home or self-care (01) ==
LOC: OPS 06:08 → DS 06:08 → OPS 07:30 → DS 07:30 → OPS 08:50
PROVIDERS: ATTEND Surgery
PROC: 0DBL8ZX Excision of Transverse Colon, Via Natural or Artificial Opening Endoscopic, Diagnostic (ICD-10-PCS; 2024-02-16)
PROC: 0DBM8ZX Excision of Descending Colon, Via Natural or Artificial Opening Endoscopic, Diagnostic (ICD-10-PCS; 2024-02-16)
PROC: 0DBK8ZX Excision of Ascending Colon, Via Natural or Artificial Opening Endoscopic, Diagnostic (ICD-10-PCS; principal; 2024-02-16 07:30)
DX: Z12.11 Encounter for screening for malignant neoplasm of colon (principal); D12.2 Benign neoplasm of ascending colon; D12.4 Benign neoplasm of descending colon; D12.3 Benign neoplasm of transverse colon; I10 Essential (primary) hypertension; M15.9 Polyosteoarthritis, unspecified; Z85.038 Personal history of other malignant neoplasm of large intestine; Z98.0 Intestinal bypass and anastomosis status
CPT/HCPCS: 88305; 99153; G0500; J2250; J3010; J7121

== ENCOUNTER 2025-06-01 06:10 | Emergency (ER) | payer MEDICARE, OTHER ==
[~2025-06-01] VITALS: Ht 185.4 cm; Wt 97.5 kg
[~2025-06-01 06:10] MED LIST changes: +ASPIRIN81 MG PO; +HUMIRA40 MG/0.8 SUB-Q; +HYDROCODON-ACE1 EA10 PO; -MIDAZOLAM HCL 5 MG/5 ML VIAL IV PRN; -fentaNYL citrate 100 MCG/2 ML VIAL IV PRN
[2025-06-01] MEDS ORDERED: ALLOPURINOL100 MG PO (06:42)
[2025-06-01] MEDS ORDERED: PLAVIX75 MG PO (06:42)
[2025-06-01] MEDS ORDERED: NORVASC5 MG PO (06:43)
[2025-06-01] MEDS ORDERED: COZAAR100 MG PO (06:44)
[2025-06-01] MEDS ORDERED: KETOROLAC TROMETHAMINE 30 MG/ML VIAL IM ONE (06:45)
[2025-06-01] MEDS ORDERED: CYCLOBENZAPRINE HCL 10 MG TAB PO ONE (07:00)
[2025-06-01] MEDS ORDERED: LIDOCAINE HCL 4% 1 EACH PATCH TD ONE (07:00)
[2025-06-01] MEDS ORDERED: CYCLOBENZAPRINE10 MG PO (07:41)
[2025-06-01] MEDS ORDERED: LIDODERM1 EACH TOP (07:41)
[2025-06-01] MEDS ORDERED: CYCLOBENZAPRINE HCL 10 MG HOME.PACK PO ONE (07:45)
[2025-06-01 08:20] VITALS: BP 143/75
[2025-06-01] MEDS ORDERED: LIDOCAINE PATCH REMOVAL 1 EA TD SCH (21:00)
== END 2025-06-01 08:20 | disposition home or self-care (01) ==
LOC: ED 06:10
DX: M43.6 Torticollis (principal); E11.9 Type 2 diabetes mellitus without complications; I10 Essential (primary) hypertension; E78.5 Hyperlipidemia, unspecified; F17.200 Nicotine dependence, unspecified, uncomplicated; Z79.82 Long term (current) use of aspirin; Z79.899 Other long term (current) drug therapy
CPT/HCPCS: 96372; 99283; A9270; J1885

== ENCOUNTER 2025-07-19 12:45 | Day surgery (SDC) | payer MEDICARE, OTHER ==
[~2025-07-19] VITALS: Ht 185.4 cm; Wt 95.0 kg
[~2025-07-19 12:45] MED LIST changes: +ALLOPURINOL100 MG PO; +COZAAR100 MG PO; +IBLOOD GLUCOSE TEST STRIP 1 EA TEST VI PRN; +LACTATED RINGER'S 1,000 ML IV SCH; +LIDOCAINE HCL 1% 5 ML SDV INJ ONE; +LIDODERM1 EACH TOP; +MIDAZOLAM HCL 5 MG/5 ML VIAL IV PRN; +PLAVIX75 MG PO; +fentaNYL citrate 100 MCG/2 ML VIAL IV PRN
[2025-07-19 13:09] VITALS: BP 149/72
[2025-07-19] MEDS ORDERED: MIDAZOLAM HCL 5 MG/5 ML VIAL ONE (13:38)
[2025-07-19] MEDS ORDERED: fentaNYL citrate 100 MCG/2 ML VIAL ONE (13:38)
--- NOTE | 2025-07-19 14:44 | NUR ---
07/19/25 Shahida4 Stefania Dawkins 3147-PATIENT ARRIVED TO PACU ON 2L NC RR EVEN. PATIENT AWAKE LAYING LEFT LATERAL ABDOMEN SOFT PASSING GAS. SR HR 70'S. IVF INFUSING. PATIENT TALKING ABOUT "POT PIES AND GOING TO [place]" DISCUSSED DISCHARGE INSTRUCTIONS.
[2025-07-19 15:13] VITALS: BP 150/89
--- NOTE | 2025-07-20 09:34 | OR ---
[facility] [address] [place], [place] [address] Signed DATE OF OPERATION: 07/19/2025 SURGEON: Betty Mohr MD PREOPERATIVE DIAGNOSIS: 1. History of sigmoid resection for malignancy 2002, [place], [place]. 2. Multiple polyps, 2023. POSTOPERATIVE DIAGNOSIS: Polyps x4. PROCEDURE: Total colonoscopy to cecum with cold morcellation polypectomy x2 and hot snare polypectomy x2. ANESTHESIA: Intravenous sedation, fentanyl 100 mcg and Versed 9 mg. INDICATION: This 80-year-old white man is a patient of Yulia Daugherty and known to me from the past. He underwent resection of sigmoid colon for colon cancer in 2002. I have performed episodic colonoscopy on him since that time. In 2023, he had multiple polyps, which were resected and based on multiple polyps I recommend short-term followup at this time. He currently has no symptoms of bleeding, diarrhea or constipation and no family history of colon cancer. FINDINGS: The prep was good. Complete colonoscopy was undertaken of the cecum. There were four polyps in total excised completely, two with hot snare technique, the other with cold morcellation technique. DESCRIPTION OF PROCEDURE: The patient was brought to the endoscopy suite and placed in lateral decubitus position, given intravenous sedation to the point of slurred speech and nystagmus. Digital rectal examination was normal. An Olympus video colonoscope was passed in the rectum and manipulated throughout the colon ultimately intubating the cecum. Scope was then withdrawn and a 1 cm polyp was noted in the proximal ascending colon which was excised with hot snare technique. It was subsequently removed. Further withdrawal showed another small polyp of the right Electronically Signed By: BETTY MOHR MD 07/20/25 0934 PATIENT NAME: KRISTA SULLIVAN OPERATIVE REPORT DATE OF : 47 REPORT #: [id number] PHYSICIAN: BETTY MOHR MD PCP: YULIA DAUGHERTY REPORT IS CONFIDENTIAL AND NOT TO BE RELEASED WITHOUT AUTHORIZATION [facility] [address] [place] [id number] Signed colon which was excised with cold morcellation technique. Further withdrawal showed a small polyp that was about 1 cm in size. It was excised with hot snare technique once again. Another small polyp was noted in low sigmoid, which was excised with cold morcellation technique. Further withdrawal showed no other abnormality including retroflexed view of the rectum. CONCLUDING DIAGNOSIS: Polyps x4. PLAN: Recommend repeat colonoscopy in 1 to 2 years, sooner if symptoms should develop. He will return to the ongoing care of TROY Wang. MD HERMELINDA Pena/CHARO /[id number] cc: TROY Wang Copies: YULIA DAUGHERTY ~ Electronically Signed By: BETTY MOHR MD 07/20/25 0934 PATIENT NAME: KRISTA SULLIVAN OPERATIVE REPORT DATE OF : 47 REPORT #: [id number] PHYSICIAN: BETTY MOHR MD PCP: YULIA DAUGHERTY REPORT IS CONFIDENTIAL AND NOT TO BE RELEASED WITHOUT AUTHORIZATION
--- NOTE | 2025-07-21 15:25 | PATH ---
[facility] [address] [facility] [place], [place] [address] Signed SPECIMEN(S): A ASCENDING POLYP SPECIMEN(S): B ASCENDING POLYP SPECIMEN(S): C DESCENDING POLYP SPECIMEN(S): D SIGMOID POLYP SPECIMEN SOURCE: A. ASCENDING POLYP B. ASCENDING POLYP C. DESCENDING POLYP D. SIGMOID POLYP CLINICAL HISTORY: History of colon cancer, history of polyps FINAL PATHOLOGIC DIAGNOSIS: A. Ascending polyp: - Tubular adenoma. B. Ascending polyp: - Tubular adenoma (one fragment) . C. Descending polyp: - Tubular adenoma. D. Sigmoid colon polyp - Tubular adenoma (one fragment). JVR:clv MICROSCOPIC EXAMINATION: Histologic sections of all submitted blocks are examined by light microscopy. These findings, together with the gross examination, support the pathologic diagnosis. GROSS DESCRIPTION: A. The specimen, labeled and designated "[place], ascending polyp," is received in formalin and consists of one byrd soft tissue fragment, 0.6 cm. Entirely submitted in (A1). B. The specimen, labeled and designated "[place], ascending polyp," is received in formalin and consists of three byrd soft tissue fragments, ranging from 0.1-0.4 cm. Entirely submitted in (B1). C. The specimen, labeled and designated "[place], descending polyp," is received in formalin and consists of two byrd soft tissue fragments, ranging from 0.3-0.5 cm. Entirely submitted in (C1). D. The specimen, labeled and designated "[place], sigmoid polyp," is received PATIENT NAME: KRISTA SULLIVAN PATHOLOGY DATE OF : 47 REPORT #: [id number] PHYSICIAN: TYLERRenrenmoney PATHOLOGY PCP: YULIA HAIRSTON REPORT IS CONFIDENTIAL AND NOT TO BE RELEASED WITHOUT AUTHORIZATION [facility] [address] [place] [address] Signed in formalin and consists of one byrd soft tissue fragment, 0.6 cm. Entirely submitted in (D1). VB (under the direct supervision of a pathologist) The Gross Description was prepared using a voice recognition system. The report was reviewed for accuracy; however, sound-alike word errors, addition and/or deletions may occur. If there is any question about this report, please contact Client Services. PERFORMING LABORATORY: Technical component was performed by [facility], [address] [place] [address] (CLIA# [id number]). Professional interpretation was performed by [facility], [address] [place] [phone] (CLIA#: [id number]). Diagnostician: Anant Mtz MD Pathologist Electronically Signed 07/21/2025 Copies: ~ PATIENT NAME: KRISTA SULLIVAN PATHOLOGY DATE OF : 47 REPORT #: [id number] PHYSICIAN: MELA PATHOLOGY PCP: YULIA HAIRSTON REPORT IS CONFIDENTIAL AND NOT TO BE RELEASED WITHOUT AUTHORIZATION
== END 2025-07-19 15:15 | disposition home or self-care (01) ==
LOC: OPS 12:45 → DS 12:46 → OPS 13:00 → DS 14:00 → OPS 14:00
PROVIDERS: ATTEND Surgery
PROC: 0DBN8ZX Excision of Sigmoid Colon, Via Natural or Artificial Opening Endoscopic, Diagnostic (ICD-10-PCS; 2025-07-19)
PROC: 0DBM8ZX Excision of Descending Colon, Via Natural or Artificial Opening Endoscopic, Diagnostic (ICD-10-PCS; 2025-07-19)
PROC: 0DBK8ZX Excision of Ascending Colon, Via Natural or Artificial Opening Endoscopic, Diagnostic (ICD-10-PCS; principal; 2025-07-19 14:00)
DX: D12.2 Benign neoplasm of ascending colon (principal); D12.4 Benign neoplasm of descending colon; D12.5 Benign neoplasm of sigmoid colon; K52.9 Noninfective gastroenteritis and colitis, unspecified; I10 Essential (primary) hypertension; E11.9 Type 2 diabetes mellitus without complications; M15.9 Polyosteoarthritis, unspecified; Z85.038 Personal history of other malignant neoplasm of large intestine; Z79.899 Other long term (current) drug therapy; Z79.4 Long term (current) use of insulin
CPT/HCPCS: 88305; 99153; G0500; J2250; J3010; J7121